=== PATIENT | female | born 1945 | race Caucasian/White ===

== ENCOUNTER 2018-10-01 01:40 | Emergency (ER) | payer MEDICARE, OTHER, SELFPAY ==
[2018-10-01 01:41] VITALS: BP 156/90; PULSE 82; RESP 15; TEMP 36.9; O2SAT 99; BMI 25.3
--- NOTE | 2018-10-01 02:11 | ED.VIS.GEN ---
History of Present Illness Chief Complaint: Complaint Informant: Patient Onset: Days - 2-3 Context: Gradual Onset Timing: Intermittent Quality: No pain Associated Symptoms: No nausea, vomiting, fevers, back pain Narrative: Patient states she started losartan for blood pressure about 5-6 days ago. For the last several days, she feels like she is having less urine, but on further questioning she is attempting to urinate more frequently, putting out less urine when she does, and feels like she is incompletely emptying when she is finished. She denies any pain or burning dysuria. No hematuria. She has no systemic symptoms and her bowel movements are normal. - Past Medical History (1) HTN (hypertension) Status: Chronic Past Medical History - Allergies and Home Meds Allergies/Adverse Reactions: Allergies No Known Allergies Allergy (Verified 10/01/18 01:44) Primary Care Physician: Marco Mckeon DO [Primary Care Provider] - Smoking Status: Never smoker Review of Systems General: Denies: Chills, Fever, Sweats Cardiovascular: Denies: Chest pain, Palpitations Respiratory: Denies: Dyspnea, Cough, Dyspnea on exertion Gastrointestinal: Denies: Abdominal pain, Nausea, Vomiting, Diarrhea, Melena, Hematochezia Genitourinary: Reports: Frequency - and incomplete bladder emptying feeling. see hpi.. Denies: Dysuria, Hematuria Musculoskeletal: Denies: Back pain, Extremity Pain Skin: Denies: Rash Neurological: Denies: Headache, Weakness, Numbness Physical Exam Vital Signs/Narrative: Vital Signs Temp Pulse Resp BP Pulse Ox 10/01/18 01:41 98.5 F 82 15 156/90 H 99 Inital Vital Signs reviewed: Yes General: Well nourished, Well developed Head: Normocephalic, Atraumatic Eyes: Perrl, EOMI Neck: Supple, - - FROM Cardiovascular: Regular rate, Regular rhythm, No murmurs Respiratory: No distress, CTA bilaterally, Chest nontender Abdomen: Soft, Nontender, Nondistended, Normal bowel sounds Back: Nontender, Normal Inspection. Negative for: CVA tenderness Extremities: Nontender, No edema Skin: Normal color, No rash Neurological: Alert, Oriented x3, Cranial nerves II-XII grossly intact, Normal Strength, Normal Sensation Psychological: Normal affect Diagnostic/Tx/Re-eval Laboratory Tests 10/01/18 10/01/18 10/01/18 Range/Units 02:55 02:35 02:35 WBC 8.5 (4.4-11.0) K/mm3 RBC 4.95 (4.2-5.4) M/mm3 Hgb 14.7 (12.0-15.0) g/dl Hct 45.0 (37-47) % MCV 90.9 (81-99) fL MCH 29.7 (27.0-32.0) pg MCHC 32.7 (32-36) g/gl RDW 13.5 (11.6-14.6) % RDW Differential 44.5 H (35.1-43.9) fl Plt Count 272 (150-450) K/mm3 MPV 10.1 (6.2-12.0) fl Immature Gran % (Auto) 0.200 (0.0-0.9) % Neut % (Auto) 64.7 (47-70) % Lymph % (Auto) 26.8 (19-41) % [place] % (Auto) 7.0 (0-10) % Eos % (Auto) 0.8 (0-5) % Baso % (Auto) 0.5 (0-1) % Absolute Neuts (auto) 5.5 (2.0-7.7) X10^3/uL Absolute Lymphs (auto) 2.27 (0.83-4.51) X10^3/ul Total Counted Not Reportable Sodium 142 (136-145) mmol/L Potassium 3.6 (3.5-5.1) mmol/L Chloride 107 (98-107) mmol/L Carbon Dioxide 27.0 (21.0-32.0) mmol/L Anion Gap 8 (5-15) BUN 29 H (7-18) mg/dL Creatinine 0.80 (0.55-1.02) mg/dL Estim Creat Clear Calc 54.13 ml/min Est GFR (MDRD) Af Amer 91 (>60) mL/min Est GFR (MDRD) Non-Af 76 (>60) mL/min BUN/Creatinine Ratio 36.4 H (10-20) RATIO Glucose 114 H (74-106) mg/dL Calcium 9.2 (8.5-10.1) mg/dL Urine Color Yellow (Yellow) Urine Clarity Sl. Cloudy (Clear) Urine pH 7.0 (5.0 - 8.0) Ur Specific [place] 1.010 (1.002-1.030) Urine Protein Negative (Negative) mg/dl Urine Glucose (UA) Normal (Normal) mg/dl Urine Ketones 5 H (Negative) mg/dl Urine Occult Blood 10 H (Negative) /ul Urine Nitrite Negative (Negative) Urine Bilirubin Negative (Negative) mg/dL Urine Urobilinogen Normal (Normal) mg/dl Ur Leukocyte Esterase 25 H (Negative) /ul Urine RBC 0-5 SEEN (0-5) /hpf Urine WBC 0-5 SEEN (0-5) /hpf Ur Squamous Epith Cells 0-5 SEEN (5-10) /hpf Urine Bacteria 0 SEEN (None Seen) /hpf Urine Mucus 0 SEEN (<or=2+) /hpf - Medical Decision Making Urine shows no infection, her renal function is good along with the exception of prerenal azotemia. The patient states that she is drinking plenty of water. After urinating, her postvoid residual is only 70, inconsistent with urinary retention. Unknown if the losartan is causing her prerenal azotemia or not. At this time, I reassured her and recommend close outpatient follow-up after the week and with her PCP. She is comfortable with that plan. ED Disposition - Plan for ED Patient: Disposition: Home or Assisted Living Chief Complaint: Complaint Diagnosis: Prerenal azotemia, Urinary frequency Instructions: ED HTN Established Referrals: Marco Mckeon DO [Primary Care Provider] - 2 Days
[2018-10-01 02:48] LABS: Absolute Lymphocyte Count 2.27 X10^3/ul (0.83-4.51); Absolute Neutrophil Count 5.5 X10^3/uL (2.0-7.7); Basophil# 0.04 X10^3/uL; Basophil% 0.5 % (0-1); Eosinophil# 0.07 X10^3/uL; Eosinophils% 0.8 % (0-5); Hemoglobin 14.7 g/dl (12.0-15.0); Lymphocyte # 2.27 X10^3/ul (4.0); Lymphocyte % 26.8 % (19-41); Mean Corp Hgb Conc 32.7 g/gl (32-36); Mean Corpuscular Hgb 29.7 pg (27.0-32.0); Mean Corpuscular Volume 90.9 fL (81-99); Mean Platelet Vol. 10.1 fl (6.2-12.0); Monocyte# 0.59 X10^3/uL; Neutrophil # 5.47 X10^3/uL (2.7-7.7); Neutrophil % 64.7 % (47-70); Platelet Count 272 K/mm3 (150-450); RBC Distribution Width CV 13.5 % (11.6-14.6); RBC Distribution Width SD 44.5 fl (35.1-43.9); Red Blood Count 4.95 M/mm3 (4.2-5.4); White Blood Count 8.5 K/mm3 (4.4-11.0)
[2018-10-01 02:50] LABS: POSITIVE COUNT NO; POSITIVE DIFFERENTIAL NO; POSITIVE MORPHOLOGY NO
[2018-10-01 02:57] LABS: Bacteria 0 SEEN /hpf (None Seen); Mucous, Urine 0 SEEN /hpf (<or=2+)
[2018-10-01 03:02] LABS: Color, Urine Yellow (Yellow); Glucose, Dipstick Normal (Normal); Ketone-Dipstick 5 mg/dl (Negative); Leukocyte Esterase-Dipstick 25 /ul (Negative); Nitrite-Dipstick Negative (Negative); Occult Blood-Urine 10 /ul (Negative); Protein-Dipstick Negative (Negative); Urine Bilirubin Dipstick Negative (Negative); Urine Clarity Sl. Cloudy (Clear); Urine Urobilinogen Normal (Normal)
[2018-10-01 03:04] LABS: Anion Gap 8 (5-15); BUN 29 mg/dL (7-18); BUN/Creat Ratio 36.4 RATIO (10-20); Calcium,Total 9.2 mg/dL (8.5-10.1); Chloride 107 mmol/L (98-107); EST Glomerular Filtration Rate 76 mL/min (>60); Est Glom Filt Rate - Afr Amer 91 mL/min (>60); Estimated Creatinine Clearance 54.13 ml/min; Glucose 114 mg/dL (74-106); Potassium 3.6 mmol/L (3.5-5.1); Sodium Level 142 mmol/L (136-145)
[2018-10-01 03:28] LABS: Red Blood Cells-Urine 0-5 SEEN /hpf (0-5); Squamous Epithelial Cells - UA 0-5 SEEN /hpf (5-10); White Blood Cells 0-5 SEEN /hpf (0-5)
[2018-10-01 04:15] VITALS: BP 125/76; PULSE 68; RESP 15; O2SAT 99
--- OUTSIDE RECORDS SUMMARY | 2018-11-24 22:17 | XMS RPT_ITS ---
:1945 Author Organization OHIP Care Team Providers Name Role Phone ULISES GODDARD Attending Unavailable Simons, Marco Primary Care Unavailable SIMONS, MARCO L Referring Unavailable SIMONS, MARCO L Attending Unavailable SIMONS, MARCO L Referring Unavailable SIMONS, MARCO L Referring Unavailable SIMONS, MARCO L Referring Unavailable SIMONS, MARCO L Attending Unavailable SIMONS, MARCO L Referring Unavailable SIMONS, MARCO L Referring Unavailable SIMONS, MARCO L Referring Unavailable GIL, KELLEY E Attending Unavailable SIMONS, MARCO L Referring Unavailable GIL, KELLEY E Referring Unavailable GIL, KELLEY E Referring Unavailable GIL, KELLEY E Referring Unavailable GIL, KELLEY E Referring Unavailable PROBLEMS PROBLEMS DATE TYPE CONDITION / CODE ATTENDING STATUS SOURCE 01/11/2017 Active Type 2 diabetes NA Active [facility] mellitus without [place] complications / Repository E11.9(ICD-10) 07/17/2018 Active Nonrheumatic aortic NA Active [facility] (valve) stenosis / [place] I35.0(ICD-10) Repository 02/07/2018 Active Encounter for NA Active [facility] screening mammogram [place] for malignant Repository neoplasm of breast / Z12.31(ICD-10) 01/05/2018 Active Other alf NA Active [facility] (current) drug [place] therapy / Repository Z79.899(ICD-10) PROCEDURES PROCEDURES No Procedure Records FoundRESULTS RESULTS CNPN Observed: 10/06/2018 Status: COMPLETED Source: BOUSE 12:00 AM [facility] REPOSITORY Telephone (CAWSTR) MARIOLARADHA Corona ([id number]) 1945 F Date Time Provider Department 10/06/18 KELLEY CORDERO During your visit today, we recorded the following information about you: Robles Feliz PSR 10/06/2018 8:17 AM Signed Patient called and informed us that she seems to be having issues with her Losartin RX. She says she has been having problems with her kidneys since beginning the medication. Please advise patient Thanks Robles Feliz PSR Jude Doss RN 10/06/2018 9:19 AM Signed Called pt, she states she has no complaints at this time. Pt is concerned that her kidney are not working so she went to emergency dept and was evaluated. Records printed AND placed in box to review Jude Cordero MD 10/06/2018 10:20 AM Signed Records reviewed. Kidney function is normal and unchanged. Urinalysis was reportedly normal. Try decreasing losartan to 25 milligrams daily and report progress early next week, along with mention of any urinary symptoms and report of blood pressures. Measure urine output. Try to drink at least 2 quarts a day total. MD Rosa Moran MA 10/06/2018 10:52 AM Signed Left message to call office. 10/06/2018 10:52 AM Rosa Doss RN 10/06/2018 1:18 PM Signed Patient notified of results and provider's instructions. Patient verbalizes understanding. Jude Doss RN 10/06/2018 1:18 PM Signed Addended by: JUDE DOSS RN on: 10/06/2018 01:18 PM Modules accepted: Orders Kelley Cordero MD 10/06/2018 3:29 PM Signed Addended by: KELLEY CORDERO MD on: 10/06/2018 03:29 PM Modules accepted: Orders Allergies As of Date: 10/06/2018 Noted Allergy Reaction IODINE 03/27/2009 2 - Rash Comments: topical iodine Date Reviewed: 09/08/2018 Reviewed by: Rosa Lee MA - Fully Assessed Reason for Visit: Medication Question [1478] Order(s):losartan (COZAAR) 50 mg tabletTake 0.5 tablets by mouth once daily.Disp: 30 tabletRfl: 3 Prescriptions as of 10/06/2018 Sig: LOSARTAN 50 MG TABLET Take 0.5 tablets by mouth onc* ASPIRIN 81 MG TABLET,DELAYED * Take 1 tablet by mouth once d* BLOOD SUGAR DIAGNOSTIC STRIPS Test blood sugar(s) 1 times d* BLOOD-GLUCOSE METER Dispense 1 kit LANCETS Test blood sugar(s) 2 times d* * CALCIUM 500 WITH D 500 MG (1,* Take one(1) tablet two(2) derick* Problem List As Of Date 10/06/2018 Noted Resolved FAMILY HX DIABETES MELLITUS [Z83.3] INVALID FOR* SCREENING MAL NEOP-COLON [Z12.11] INVALID FOR* UNSP ABNORMAL MAMMOGRAM [R92.8] INVALID FOR* MALIG NEOPLASM BREAST UP-OUTER [C50.419] INVALID FOR* More... Pain in joint, ankle and foot [M25.579] INVALID FOR*01/11/2017 Impaired fasting glucose [R73.01] INVALID FOR*07/12/2016 Benign Neoplasm of Skin of Trunk, except Scrotu*INVALID FOR* Personal history of breast cancer [Z85.3] INVALID FOR* Controlled type 2 diabetes mellitus without com*INVALID FOR* Low HDL (under 40) [E78.6] INVALID FOR* Elevated LFTs [R94.5] INVALID FOR* Dyslipidemia [E78.5] INVALID FOR* Vitamin D deficiency [E55.9] INVALID FOR* Osteopenia [M85.80] INVALID FOR* Moderate aortic regurgitation [I35.1] INVALID FOR* Left atrial dilatation [I51.7] INVALID FOR* Cardiomyopathy, nonischemic (HCC) [I42.8] INVALID FOR* Prescriptions ordered this encounter Disp Refills Start End LOSARTAN 50 MG TABLET 30 t* 3 10/06/2018 Class: Med Update Route: ORAL Sig: Take 0.5 tablets by mouth once daily. Medications Discontinued During This Encounter losartan (COZAAR) 50 mg tablet 30 t* 3 09/25/2018 10/06/2018 Route: ORAL Sig: Take 1 tablet by mouth once daily. Disc: Reason for discontinue is not on file. Encounter Status:Closed by ROBLES HARRIS on 10/06/18 EMERGENCY DEPARTMENT Observed: 10/01/2018 Status: F Source: [place] SUMMARY 3:55 AM [facility] REPOSITORY [facility] Medical Records Department [address] [place] [address] Emergency Department Summary 10/01/18 0211 MR#: [id number] Acct: [id number] Name: RADHA GARNETT Rep #: [id number] : 1945 72 From: Ulises Goddard MD PCP: Marco Bower DO Status: REG ER History of Present Illness Chief Complaint: Complaint Informant: Patient Onset: Days - 2-3 Context: Gradual Onset Timing: Intermittent Quality: No pain Associated Symptoms: No nausea, vomiting, fevers, back pain Narrative: Patient states she started losartan for blood pressure about 5-6 days ago. For the last several days, she feels like she is having less urine, but on further questioning she is attempting to urinate more frequently, putting out less urine when she does, and feels like she is incompletely emptying when she is finished. She denies any pain or burning dysuria. No hematuria. She has no systemic symptoms and her bowel movements are normal. - Past Medical History (1) HTN (hypertension) Status: Chronic Past Medical History - Allergies and Home Meds Allergies/Adverse Reactions: Allergies No Known Allergies Allergy (Verified 10/01/18 01:44) Primary Care Physician: Marco Simons DO [Primary Care Provider] - Smoking Status: Never smoker Review of Systems General: Denies: Chills, Fever, Sweats Cardiovascular: Denies: Chest pain, Palpitations Respiratory: Denies: Dyspnea, Cough, Dyspnea on exertion Gastrointestinal: Denies: Abdominal pain, Nausea, Vomiting, Diarrhea, Melena, Hematochezia Genitourinary: Reports: Frequency - and incomplete bladder emptying feeling. see hpi.. Denies: Dysuria, Hematuria Musculoskeletal: Denies: Back pain, Extremity Pain Skin: Denies: Rash Neurological: Denies: Headache, Weakness, Numbness Physical Exam Vital Signs/Narrative: Vital Signs 10/01/18 01:41 98.5 F 82 15 156/90 H 99 Inital Vital Signs reviewed: Yes General: Well nourished, Well developed Head: Normocephalic, Atraumatic Eyes: Perrl, EOMI Neck: Supple, - - FROM Cardiovascular: Regular rate, Regular rhythm, No murmurs Respiratory: No distress, CTA bilaterally, Chest nontender Abdomen: Soft, Nontender, Nondistended, Normal bowel sounds Back: Nontender, Normal Inspection. Negative for: CVA tenderness Extremities: Nontender, No edema Skin: Normal color, No rash Neurological: Alert, Oriented x3, Cranial nerves II-XII grossly intact, Normal Strength, Normal Sensation Psychological: Normal affect Diagnostic/Tx/Re-eval Laboratory Tests - Medical Decision Making Urine shows no infection, her renal function is good along with the exception of prerenal azotemia. The patient states that she is drinking plenty of water. After urinating, her postvoid residual is only 70, inconsistent with urinary retention. Unknown if the losartan is causing her prerenal azotemia or not. At this time, I reassured her and recommend close outpatient follow-up after the week and with her PCP. She is comfortable with that plan. ED Disposition - Plan for ED Patient: Disposition: Home or Assisted Living Chief Complaint: Complaint Diagnosis: Prerenal azotemia, Urinary frequency Instructions: ED HTN Established Referrals: Marco Simons DO [Primary Care Provider] - 2 Days What to do if you have Problems For any increased pain, shortness of breath, bleeding, nausea or vomiting, chest pain, or any unexpected problems, contact your Primary Care Provider. Call [facility] ([phone]) or report to the closest Emergency Room. Call 911 if necessary. 10/01/18 0355 <Electronically signed by Ulises Goddard MD> Date Ulises Goddard MD Cosigner Signature (If Indicated): Date CC: Marco Bower DO URINALYSIS, COMPLETE Collected: 10/01/2018 Status: F Source: IRIS 2:55 AM [facility] REPOSITORY Order Comment: Order Date: 10/01/18 How was Urine Obtained? 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 Cloudy LAB L400.3200 Normal mg/dl Normal GLUCOSE, UR Normal LAB L400.3300 Negative mg/dL Normal BILIRUBIN URINE Negative LAB L400.3400 Negative mg/dl High 5 KETONE UR LAB L400.3465 1.002-1.030 Normal SP.GR. DIPSTX 1.010 LAB L400.3550 5.0 - 8.0 pH UR Normal 7.0 LAB L400.3600 Negative mg/dl PROT Normal DIPSTX Negative LAB L400.3700 Normal mg/dl Normal UROBILI Normal LAB L400.3750 Negative Normal NITRITE UR Negative LAB L400.3780 Negative /ul High 10 OCCULT BLOOD-UR LAB L400.3800 Negative /ul High LEUK 25 ESTERASE LAB L400.4050 0-5 /hpf WBC Normal 0-5 SEEN LAB L400.4100 0-5 /hpf Normal RBC-UA 0-5 SEEN LAB L400.4150 5-10 /hpf SQUAM Normal EPI 0-5 SEEN LAB L400.4300 None Seen /hpf 0 Normal BACTERIA SEEN LAB L400.4350 <or=2+ /hpf 0 Normal MUCUS, URINE SEEN Performed By: #### L400.0001 #### [facility] [address] [place], [place], [address] CBC W/DIFF, AUTOMATED Collected: 10/01/2018 Status: F Source: [place] 2:35 AM [facility] REPOSITORY TYPE CODE TESTS RESULT OUT OF RANGE REFERENCE UNITS LAB L100.1000 4.4-11.0 K/mm3 Normal WBC 8.5 LAB L100.1200 4.2-5.4 M/mm3 Normal RBC 4.95 LAB L100.1300 12.0-15.0 g/dl Normal HGB 14.7 LAB L100.1400 37-47 % Normal HCT 45.0 LAB L100.1500 81-99 fL Normal MCV 90.9 LAB L100.1600 27.0-32.0 pg Normal MCH 29.7 LAB L100.1700 32-36 g/gl Normal MCHC 32.7 LAB L100.1810 11.6-14.6 % Normal RDW CV 13.5 LAB L100.1820 35.1-43.9 fl High RDW SD 44.5 LAB L100.1900 150-450 K/mm3 Normal PLT 272 LAB L100.2000 6.2-12.0 fl Normal MPV 10.1 LAB L100.2100 47-70 % Normal NEUT% 64.7 LAB L100.2200 19-41 % Normal LY% 26.8 LAB L100.2300 0-10 % Normal MONO% 7.0 LAB L100.2400 0-5 % Normal EO% 0.8 LAB L100.2500 0-1 % Normal BASO% 0.5 LAB L100.2550 0.0-0.9 % Normal IM GRAN % 0.200 Result Comment: IG% - Immature Granulocytes (promyelocytes, myelocytes and metamyelocytes) > 1% indicates that a LEFT SHIFT is Present. LAB L100.2620 2.0-7.7 X10 3/uL Normal Absolute Neut 5.5 LAB L100.2720 0.83-4.51 X10 3/ul Normal Absolute Lymph 2.27 Performed By: #### L100.0100 #### [facility] [address] [place], [address] BASIC METABOLIC Collected: 10/01/2018 Status: F Source: [facility] PROFILE ([facility]) 2:35 AM [facility] REPOSITORY TYPE CODE TESTS RESULT OUT OF RANGE REFERENCE UNITS LAB L501.0100 74-106 mg/dL High GLU 114 Result Comment: Fasting Glucose result from 100 to 125 mg/dL suggests IMPAIRED HOMEOSTASIS per A.D.A. criteria. Please note revised GLUCOSE reference range effective 2017. LAB L501.1000 7-18 mg/dL High BUN 29 LAB L501.1100 0.55-1.02 mg/dL Normal CREAT,SERUM 0.80 Result Comment: The validity of the calculated GFR AND GFRAA in patients over 70 years has not been determined. Clinical correlation is essential. LAB L501.1110 >60 mL/min Normal EST GFR 76 Result Comment: Non- GFR Calc LAB L501.1115 >60 mL/min Normal EST GFR - AA 91 Result Comment: GFR Calc LAB L501.1255 ml/min Normal Estimated CRCL 54.13 LAB L501.1300 10-20 RATIO High BUN/CRE 36.4 LAB L501.2200 8.5-10 mg/dL Normal .1 CA 9.2 LAB L501.5300 136-14 mmol/L Normal 5 NA 142 LAB L501.5600 3.5-5. mmol/L Normal 1 K 3.6 LAB L501.5900 98-107 mmol/L Normal CL 107 LAB L501.6100 21.0-3 mmol/L Normal 2.0 CO2 27.0 LAB L501.6200 5-15 Normal GAP 8 Performed By: #### L500.2500 #### [facility] [address] [place], [address] PROGRESS Observed: 09/29/2018 Status: COMPLETED Source: BOUSE 3:59 PM [facility] REPOSITORY HNO ID: [id number] Author: Kelley Cordero Service: (none) Author Type: Physician Type: Progress Notes Filed: 09/29/2018 4:00 PM Note Text: Blood pressure monitor does not appear to be consistent. Please change the batteries. If she continues to get widely varying readings, this monitor should be replaced. Once she has it working correctly, check vital signs daily and contact us in a week. Kelley Cordero MD CNNURSE Observed: 09/29/2018 Status: COMPLETED Source: BOUSE 3:15 PM [facility] REPOSITORY Nurse Visit (CAWSTR) RADHA GARNETT ([id number]) 1945 F Date Time Provider Department 09/29/18 3:15 PM NURSE CARD ADMIN [facility] WSTR CAWSTR During your visit today, we recorded the following information about you: Pulse Blood pressure 73/minute 124/70 Rosa Lee MA 09/29/2018 3:21 PM Signed Patient brought home BP monitor in to verify it was ready correctly. Home: 163/80 pulse 77 129/70 pulse 72 Office: 142/78 pulse 83 124/70 pulse 73 Rosa Cordero MD 09/29/2018 4:00 PM Signed Blood pressure monitor does not appear to be consistent. Please change the batteries. If she continues to get widely varying readings, this monitor should be replaced. Once she has it working correctly, check vital signs daily and contact us in a week. Kelley Cordero MD Referring Provider: SELF [200] Allergies As of Date: 09/29/2018 Noted Allergy Reaction IODINE 03/27/2009 2 - Rash Comments: topical iodine Date Reviewed: 09/08/2018 Reviewed by: Rosa Lee MA - Fully Assessed Reason for Visit: Allied Health Visit [5] Primary Visit Diagnosis:Cardiomyopathy, nonischemic (HCC) [I42.8] Prescriptions as of 09/29/2018 Sig: LOSARTAN 50 MG TABLET Take 1 tablet by mouth once d* ASPIRIN 81 MG TABLET,DELAYED * Take 1 tablet by mouth once d* BLOOD SUGAR DIAGNOSTIC STRIPS Test blood sugar(s) 1 times d* BLOOD-GLUCOSE METER Dispense 1 kit LANCETS Test blood sugar(s) 2 times d* * CALCIUM 500 WITH D 500 MG (1,* Take one(1) tablet two(2) derick* Problem List As Of Date 09/29/2018 Noted Resolved FAMILY HX DIABETES MELLITUS [Z83.3] INVALID FOR* SCREENING MAL NEOP-COLON [Z12.11] INVALID FOR* UNSP ABNORMAL MAMMOGRAM [R92.8] INVALID FOR* MALIG NEOPLASM BREAST UP-OUTER [C50.419] INVALID FOR* More... Pain in joint, ankle and foot [M25.579] INVALID FOR*01/11/2017 Impaired fasting glucose [R73.01] INVALID FOR*07/12/2016 Benign Neoplasm of Skin of Trunk, except Scrotu*INVALID FOR* Personal history of breast cancer [Z85.3] INVALID FOR* Controlled type 2 diabetes mellitus without com*INVALID FOR* Low HDL (under 40) [E78.6] INVALID FOR* Elevated LFTs [R94.5] INVALID FOR* Dyslipidemia [E78.5] INVALID FOR* Vitamin D deficiency [E55.9] INVALID FOR* Osteopenia [M85.80] INVALID FOR* Moderate aortic regurgitation [I35.1] INVALID FOR* Left atrial dilatation [I51.7] INVALID FOR* Cardiomyopathy, nonischemic (HCC) [I42.8] INVALID FOR* Visit Notes: >> Rosa Lee MA Fri Sep 29, 2018 3:18 PM Status: Signed Patient brought home BP monitor in to verify it was ready correctly. Home: 163/80 pulse 77 129/70 pulse 72 Office: 142/78 pulse 83 124/70 pulse 73 Rosa Lee GURPREET Follow-up and Disposition History Recorded Encounter Status:Closed by OTIS ROSA VÁZQUEZ on 09/29/18 NM CARDIAC PERF Observed: 09/20/2018 Status: F Source: BOUSE STRESS/EXERCISE 2:15 PM [facility] REPOSITORY * * *Final Report* * * DATE OF EXAM: Sep 20 2018 2:15PM WON 0004 - NM CARDIAC PERF STRESS/EXERCISE / PROCEDURE REASON: Cardiomyopathy, nonischemic (HCC) [I42.8];Nonrheumatic aortic valve stenosis [I * * * * Physician Interpretation * * * * PATIENT: Name: RADHA GARNETT Age: 72 years Gender: F CONCLUSIONS: 1. There is no scintigraphic evidence for inducible ischemia. 2. No evidence of scarred myocardium. 3. Average functional capacity for age and gender. 4. Left ventricle is normal in size. The left ventricle systolic function is mildly decreased. 5. This is an intermediate risk scan. Gated Stress FBP LVEF % 46 Prior Study Comparison No prior nuclear cardiology exam available for comparison. Nuclear Med Report:1-Day [id number] Exercise Stress Gated SPECT: Myocardial perfusion imaging was performed at rest 30 to 60 minutes following the IV injection of Tc-99m tetrofosmin. One minute prior to peak exercise, the patient was injected IV with Tc-99m tetrofosmin. Gated post stress tomographic imaging was performed 10 to 20 minutes later. See administered doses below. [facility] Date of service: 09/20/2018 8:02:07 AM Ordering Physician: Requesting Physician: KELLEY CORDERO Indication: Assessment for suspected CAD. Interpreting physician: Anuradha Curiel MD Patient History: History of cardiomyopathy, valvular heart disease and diabetes mellitus. Medications currently taking are ASA. Height: 160.02 cm BSA: 1.70 m? Weight: 64.86 kg BMI: 25.3 kg/m? Imaging Protocol Limitation Reason G.I. uptake, Patient motion and Breast attenuation. Exam Type: Rest Stress Radiopharm: Tc-99m Tetrofosmin Tc-99m Tetrofosmin Dosage(mCi): 13.3 36 Stress Agent: Treadmill Resting Heart Rate: 69 bpm Resting Blood Press: 156/78 mmHg Image Quality The overall study imaging quality was deemed to be fair. The following technical issues were noted: G.I. uptake, Patient motion and Breast attenuation. FINDINGS: Left Ventricle Wall Motion: mild global hypokinesis Stress IR:3D - Rest IR:3D - Gated Stress FBP - Reversibility - Stress IR:3D Stress IR:3D Gated Stress FBP LVEF: 46 % ED Volume: 95 ml ES Volume: 51 ml TID: 0.82 Perfusion Findings Stress IR:3D - Summed Score=0 All scored segments reflect normal perfusion. Rest IR:3D - Summed Score=0 All scored segments reflect normal perfusion. Stress IR:3D Rest IR:3D Summed Score=0 Summed Score=0 LEFT VENTRICLE The left ventricle is normal in size. Left ventricular systolic function is mildly decreased. Stress Test Findings: There is no scintigraphic evidence for inducible ischemia. There is no evidence of scarring. The stress test was terminated due to the following: Fatigue. Peak HR 166 bpm. (111 % MPHR) (7.8 METS) Peak BP 176 mmHg/98 mmHg Patient experienced no symptoms during stress. Stress ECG normal ST segment response. Stress complications: none. Final Cruise Director: MAGDALENA Transcribe Date/Time: Sep 20 2018 8:02A Dictated by : ANURADHA CURIEL MD This examination was interpreted and the report reviewed and electronically signed by: ANURADHA CURIEL MD on Sep 20 2018 3:05PM EST [id number] PROGRESS Observed: 09/20/2018 Status: COMPLETED Source: BOUSE 2:09 PM [facility] REPOSITORY HNO ID: [id number] Author: Char Trent Service: (none) Author Type: (none) Type: Progress Notes Filed: 09/20/2018 2:21 PM Note Text: RADIOLOGY SERVICE PROGRESS NOTE SERVICE DATE: 09/20/2018 SERVICE TIME: 2:09 PM PATIENT IDENTITY VERIFICATION COMPLETED USING TWO (2) METHODS: Patient confirmed name and Date of verbally. PATIENT GENDER DATA: .female : No ALLERGIES: Reviewed and unchanged MEDICATIONS REVIEWED: Yes PATIENT RELEVANT IMPLANT DATA REVIEWED: Not Applicable CREATININE: Creatinine Date Value Ref Range Status 01/05/2018 0.88 0.58 - 0.96 mg/dL Final 07/08/2017 0.81 0.58 - 0.96 mg/dL Final 10/06/2016 0.89 0.58 - 0.96 mg/dL Final eGFR-All Other Races Date Value Ref Range Status 01/05/2018 >60 . Final Comment: eGFR (Estimated GFR) Units of measure: mL/min/1.73 meters squared eGFR is derived from the reexpressed MDRD Study equation using the following parameters: serum creatinine, age, gender and race. The creatinine assay has been calibrated to be traceable to IDMS. An eGFR <60 mL/min/1.73m2 for >3 months is consistent with chronic kidney disease. Refer to KDOQI guidelines for clinical interpretation. In patients with unstable renal function, e.g. those with acute kidney injury, the eGFR may not accurately reflect actual GFR. eGFR- Date Value Ref Range Status 01/05/2018 >60 Final P.O.C.T. RESULTS: N/A September 20, [address] PERFORMED: No IV SITE: Ambulatory: A peripheral IV was started in the Right forearm with a Angio cath: 24 gauge. POST EXAM PIV STATUS: Discontinued PROCEDURE TYPE: [place] Stress: 13.3mCi [id number] was administered IV for Rest Imaging at 12:18 by [employer] . 36 mCi [id number] was administered IV for Stress Imaging at 13:50 by [employer]. ADMINISTRATION TIME: PATIENT DISCHARGED TO: Ambulatory patient, left [place] department area. A Diagnostic radioactive procedure has taken place, with no further precautions necessary other than routine body substance precautions. More information regarding radiation safety can be found using this link: [email or web address] SIGNATURE: Char Trent PATIENT NAME: Radha Garnett DATE: September 20, 2018 TIME: 2:09 PM PAGER/CONTACT #: PROGRESS Observed: 09/20/2018 Status: COMPLETED Source: BOUSE 2:05 PM [facility] REPOSITORY HNO ID: [id number] Author: Basilio Barnes (Rcep) Service: (none) Author Type: Coach Operator Type: Progress Notes Filed: 09/20/2018 2:06 PM Note Text: Preliminary report complete; results under cardiac tab. MICHELL Wolfe CNOV Observed: 09/20/2018 Status: COMPLETED Source: BOUSE 1:30 PM [facility] REPOSITORY Office Visit (CAWSTR) RADHA GARNETT ([id number]) 1945 F Date Time Provider Department 09/20/18 1:30 PM CHRIS BARNES) CAWSTR During your visit today, we recorded the following information about you: MICHELL Wolfe 09/20/2018 2:06 PM Signed Preliminary report complete; results under cardiac tab. MICHELL Wolfe Referring Provider: KELLEY CORDERO [[id number]] Allergies As of Date: 09/20/2018 Noted Allergy Reaction IODINE 03/27/2009 2 - Rash Comments: topical iodine Date Reviewed: 09/08/2018 Reviewed by: Rosa Lee MA - Fully Assessed Primary Visit Diagnosis:POWELL (dyspnea on exertion) [R06.09] Other Visit Diagnosis:Cardiomyopathy, nonischemic (HCC) [I42.8] Prescriptions as of 09/20/2018 Sig: ASPIRIN 81 MG TABLET,DELAYED * Take 1 tablet by mouth once d* BLOOD SUGAR DIAGNOSTIC STRIPS Test blood sugar(s) 1 times d* BLOOD-GLUCOSE METER Dispense 1 kit LANCETS Test blood sugar(s) 2 times d* * CALCIUM 500 WITH D 500 MG (1,* Take one(1) tablet two(2) derick* Problem List As Of Date 09/20/2018 Noted Resolved FAMILY HX DIABETES MELLITUS [Z83.3] INVALID FOR* SCREENING MAL NEOP-COLON [Z12.11] INVALID FOR* UNSP ABNORMAL MAMMOGRAM [R92.8] INVALID FOR* MALIG NEOPLASM BREAST UP-OUTER [C50.419] INVALID FOR* More... Pain in joint, ankle and foot [M25.579] INVALID FOR*01/11/2017 Impaired fasting glucose [R73.01] INVALID FOR*07/12/2016 Benign Neoplasm of Skin of Trunk, except Scrotu*INVALID FOR* Personal history of breast cancer [Z85.3] INVALID FOR* Controlled type 2 diabetes mellitus without com*INVALID FOR* Low HDL (under 40) [E78.6] INVALID FOR* Elevated LFTs [R94.5] INVALID FOR* Dyslipidemia [E78.5] INVALID FOR* Vitamin D deficiency [E55.9] INVALID FOR* Osteopenia [M85.80] INVALID FOR* Moderate aortic regurgitation [I35.1] INVALID FOR* Left atrial dilatation [I51.7] INVALID FOR* Cardiomyopathy, nonischemic (HCC) [I42.8] INVALID FOR* Encounter Status:Closed by Basilio GUZMAN on 09/20/18 PROGRESS Observed: 09/08/2018 Status: COMPLETED Source: BOUSE 5:45 PM [facility] REPOSITORY [facility] ID: [id number] Author: Kelley Cordero Service: (none) Author Type: Physician Type: Progress Notes Filed: 09/08/2018 5:51 PM Note Text: PERTINENT CARDIAC HISTORY Aortic insufficiency - mild DM Cardiomyopathy - mild, nonischemic? IVCD ADHERENCE TO GUIDELINES WILLY-I or ARB for HF with prior LVEF<40 (NQF 0081) - N/A ASA or Plavix for ASHD (NQF 0067) - N/A Beta sachi for ASHD with prior AZ or prior LVEF<40 (NQF 0070) - N/A Beta sachi for HF with prior LVEF<40 (NQF 0083) - N/A WILLY-I or ARB for ASHD with DM or prior LVEF<40 (NQF 0066) - N/A Statin therapy for ASHD or FHL or DM - N/A BMI documented and plan if >25 (NQF 0421) - lifestyle recommendation form Tobacco use screening and referral (NQF 0028) - lifestyle recommendation form Recommendation for whole food, plant based diet - lifestyle recommendation form CLINICAL IMPRESSION/PLAN: Radha Garnett has mild cardiomyopathy and moderate aortic insufficiency. Ischemic heart disease should be considered, although her LV dysfunction is more global. I recommend that she have a treadmill nuclear stress test for further characterization of her LV function and to evaluate for ischemia. Her aortic insufficiency is only moderate and does not require any specific therapy at this time, although I have asked her to check vital signs on a regular basis and contact me. If she requires medication for blood pressure control, WILLY inhibitor or losartan would be ideal choices. I will see her in 6 months or as needed. If she develops chest pain or shortness of breath, she has been advised to contact me. Thank you for asking me to see and make recommendations on Radha Garnett. This report is available to you in the shared medical record. Written and verbal health teaching given to patient, patient verbalizes understanding and agrees with treatment plan. DIAGNOSIS FOR VISIT: Aortic insufficiency HISTORY OF PRESENT ILLNESS Radha Garnett is a 72-year-old woman who is seen in consultation at the request of Dr. Simons, for recommendations regarding aortic valve disease. She was recently noted to have a more significant cardiac murmur. She was told that she had a heart murmur years ago. Echocardiogram at that time showed no significant valvular lesion. She has had stable exercise tolerance. She denies chest pain. She's had no orthopnea, edema, syncope, palpitations, TIAs, amaurosis or claudication. She has been treated for breast cancer. Echocardiogram done prior to chemotherapy showed ejection fraction at lower limits of normal. Risk factors for ischemic heart disease include diabetes. ALLERGIES: ALLERGIES Allergen Reactions - Iodine Rash topical iodine CURRENT OUTPATIENT MEDICATIONS: aspirin, enteric coated (ASPIRIN, ENTERIC COATED) 81 mg EC tablet Take 1 tablet by mouth once daily. blood sugar diagnostic (BLOOD GLUCOSE TEST) test strip Test blood sugar(s) 1 times daily. Dx: Type 2 DM -Controlled, Insulin: No Blood-Glucose Meter [facility] [place] Dispense 1 kit Lancets lancets Test blood sugar(s) 2 times daily. Dx: Type 2 DM - Uncontrolled E11.65 Insulin: No calcium carbonate/vitamin d3(CALCIUM 500 WITH D 500 MG (1,250 MG)-400 UNIT TAB) Take one(1) tablet two(2) times daily. PAST MEDICAL HISTORY Diagnosis Date - Breast cancer (HCC) 2008 lt breast - Diabetes mellitus type 2, uncontrolled (HCC) 07/2016 - Esophageal reflux PAST SURGICAL HISTORY Procedure Laterality Date - BX BREAST PERC VACUUM/ROTN Left Breast - Ductal Carcinoma - BX BREAST PERC VACUUM/ROTN 08/13/10 Left - BX/REMV,LYMPH NODE,DEEP AXILL Left Axillary Dissection - COLONOSCOP W/ OR W/O BRSH SPEC 10/04/2009 Normal Colonscopy - MASTECTOMY, PARTIAL 12/16/2008 L Needle Lump Sentinal Node - PAST SURGICAL HISTORY OF Excision moles abdomen x 3 age 23 - TOTAL ABDOM HYSTERECTOMY 1994 Hysterectomy, ZAK-BSO, Fibroids - TUNNEL VAD W SUB Q PORT >=5 Right Subclavian FAMILY HISTORY Problem Relation Age of Onset - Diabetes Mother - Hypertension Mother - Diabetes Father - Hypertension Maternal Grandmother - Diabetes Maternal Grandmother - Heart Maternal Grandfather - None Sister Twin - None Sister - Cancer Paternal Aunt Melanoma Social History Marital status: Spouse name: Antonio Years of education: 12 Number of children: 1 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 SHEENT: No change in vision or auditory acuity. Respiratory: No productive cough. Cardiac: As noted above. GI: No melena. : No dysuria. Musculoskeletal: No myalgias. Neurologic: No strokes. Psychiatric: No depression. Endocrine: No diabetes. Hematologic: No anemia. PHYSICAL EXAMINATION: S/he is alert and in no distress VITAL SIGNS: BP 143/81 Pulse 74 Ht 5' 3.25 (1.61m) Wt 143 lb 8 oz (65.1kg) BMI 25.21 kg/(m2). SHEENT: Skin is warm and dry. Pupils are round and reactive. Retinal vessels are grossly unremarkable. No xanthelasmas appreciated. Pharynx is benign. There is no oral cyanosis. Neck: supple. No adenopathy or thyroid enlargement. Chest: Clear to auscultation. Trachea is midline. Air entry is equal. There is no chest wall tenderness. Cardiac: Regular rhythm. S1 and S2 are normal. PMI is nondisplaced. There is a 2/6 systolic ejection murmur and a soft murmur of aortic insufficiency. No click is heard. Carotids are brisk without bruits. JVP is less than 10 cm. Abdomen: Soft and nontender. There are no pulsatile masses or bruits. No liver enlargement. Bowel sounds are active. : Deferred. Extremities: No edema. Pulses are intact and symmetrical. No clubbing or cyanosis. No femoral bruits. Neurologic: Grossly normal motor and sensory. S/he is alert and oriented x4. Musculoskeletal: No joint deformities. Echocardiogram was recently performed. This showed ejection fraction 45%. This has decreased slightly from her previous study. She has slightly more aortic insufficiency, now mild to moderate. Recent labs were reviewed. renal function is normal. LDL was 75. EKG shows sinus rhythm. There is left axis deviation and mild IVCD. Since prior study, QRS has widened slightly and there is slightly more repolarization abnormality. Electronically Signed: Kelley Cordero MD September 08, 2018 5:45 PM CC: DO YAN Cabrera Observed: 09/08/2018 Status: COMPLETED Source: [place] 12:45 PM [facility] REPOSITORY Office Visit (CAWSTR) RADHA GARNETT ([id number]) 1945 F Date Time Provider Department 09/08/18 12:45 PM KELLEY CORDERO During your visit today, we recorded the following information about you: Pulse Blood pressure Weight Height 74/minute 143/81 65.1 kg 1.607 m Kelley Cordero MD 09/08/2018 1:41 PM Signed LIFESTYLE CHANGE A healthy lifestyle is the most important component of your overall treatment plan. 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 EAT A WHOLE FOOD, PLANT BASED DIET The nutrition your body gets is more important than the medicine you take. What matters most is the overall way you eat. We encourage you to minimize the use of animal products (which include dairy and all meats except fatty fish) and use whole, unprocessed plant foods to provide your protein, vitamins and other nutrients. We have a lot of information to share with you on this topic. This is not a diet. It is a way of life that you will keep with you. EXERCISE REGULARLY It is not important to spend hours in the gym, lifting weights and perspiring heavily. A total of 2-3 hours per week of aerobic (causing you to be moderately short of breath) exercise is sufficient to improve your health. Talk to us before you begin a new exercise program, if you have heart disease or experience shortness of breath or chest pain. REDUCE STRESS Chronic emotional and physical stress leads to disease. Ways of reducing stress include meditation, visualization, prayer, yoga and other forms of relaxation therapy. Consistency is the barboza. Find a technique that works for you and do it every day. CULTIVATE RELATIONSHIPS Loneliness and isolation have a major negative impact on health. Seek out others who can love, care for and nurture you. Avoid hurtful relationships. MAINTAIN IDEAL BODY WEIGHT The best way to do this is to do all the things above. Our bodies naturally find the right weight if we keep moving and feed ourselves the right food. If your BMI is greater than 25, we strongly recommend a referral to a weight management program. Please speak to us or your family physician about available programs. AVOID NICOTINE IN ALL FORMS This includes all tobacco products, whether chewed, smoked, vaped, or rubbed on the skin. Smoking cessation programs, which can make use of tobacco substitutes, medications to suppress cravings and behavior management, are available. Please contact your family physician about programs in your area. Kelley Cordero MD 09/08/2018 5:51 PM Signed PERTINENT CARDIAC HISTORY Aortic insufficiency - mild DM Cardiomyopathy - mild, nonischemic? IVCD ADHERENCE TO GUIDELINES WILLY-I or ARB for HF with prior LVEF<40 (NQF 0081) - N/A ASA or Plavix for ASHD (NQF 0067) - N/A Beta sachi for ASHD with prior [place] or prior LVEF<40 (NQF 0070) - N/A Beta sachi for HF with prior LVEF<40 (NQF 0083) - N/A WILLY-I or ARB for ASHD with DM or prior LVEF<40 (NQF 0066) - N/A Statin therapy for ASHD or FHL or DM - N/A BMI documented and plan if >25 (NQF 0421) - lifestyle recommendation form Tobacco use screening and referral (NQ 0028) - lifestyle recommendation form Recommendation for whole food, plant based diet - lifestyle recommendation form CLINICAL IMPRESSION/PLAN: Radha Garnett has mild cardiomyopathy and moderate aortic insufficiency. Ischemic heart disease should be considered, although her LV dysfunction is more global. I recommend that she have a treadmill nuclear stress test for further characterization of her LV function and to evaluate for ischemia. Her aortic insufficiency is only moderate and does not require any specific therapy at this time, although I have asked her to check vital signs on a regular basis and contact me. If she requires medication for blood pressure control, WILLY inhibitor or losartan would be ideal choices. I will see her in 6 months or as needed. If she develops chest pain or shortness of breath, she has been advised to contact me. Thank you for asking me to see and make recommendations on Radha Garnett. This report is available to you in the shared medical record. Written and verbal health teaching given to patient, patient verbalizes understanding and agrees with treatment plan. DIAGNOSIS FOR VISIT: Aortic insufficiency HISTORY OF PRESENT ILLNESS Radha Garnett is a 72-year-old woman who is seen in consultation at the request of Dr. Simons, for recommendations regarding aortic valve disease. She was recently noted to have a more significant cardiac murmur. She was told that she had a heart murmur years ago. Echocardiogram at that time showed no significant valvular lesion. She has had stable exercise tolerance. She denies chest pain. She's had no orthopnea, edema, syncope, palpitations, TIAs, amaurosis or claudication. She has been treated for breast cancer. Echocardiogram done prior to chemotherapy showed ejection fraction at lower limits of normal. Risk factors for ischemic heart disease include diabetes. ALLERGIES: ALLERGIES Allergen Reactions - Iodine Rash topical iodine CURRENT OUTPATIENT MEDICATIONS: aspirin, enteric coated (ASPIRIN, ENTERIC COATED) 81 mg EC tablet Take 1 tablet by mouth once daily. blood sugar diagnostic (BLOOD GLUCOSE TEST) test strip Test blood sugar(s) 1 times daily. Dx: Type 2 DM -Controlled, Insulin: No Blood-Glucose Meter mis Dispense 1 kit Lancets lancets Test blood sugar(s) 2 times daily. Dx: Type 2 DM - Uncontrolled E11.65 Insulin: No calcium carbonate/vitamin d3(CALCIUM 500 WITH D 500 MG (1,250 MG)-400 UNIT TAB) Take one(1) tablet two(2) times daily. PAST MEDICAL HISTORY Diagnosis Date - Breast cancer (HCC) 2008 lt breast - Diabetes mellitus type 2, uncontrolled ([facility]) 07/2016 - Esophageal reflux PAST SURGICAL HISTORY Procedure Laterality Date - BX BREAST PERC VACUUM/ROTN Left Breast - Ductal Carcinoma - BX BREAST PERC VACUUM/ROTN 08/13/10 Left - BX/REMV,LYMPH NODE,DEEP AXILL Left Axillary Dissection - COLONOSCOP W/ OR W/O BRSH SPEC 10/04/2009 Normal Colonscopy - MASTECTOMY, PARTIAL 12/16/2008 L Needle Lump Sentinal Node - PAST SURGICAL HISTORY OF Excision moles abdomen x 3 age 23 - TOTAL ABDOM HYSTERECTOMY 1994 Hysterectomy, ZAK-BSO, Fibroids - TUNNEL VAD W SUB Q PORT >=5 Right Subclavian FAMILY HISTORY Problem Relation Age of Onset - Diabetes Mother - Hypertension Mother - Diabetes Father - Hypertension Maternal Grandmother - Diabetes Maternal Grandmother - Heart Maternal Grandfather - None Sister Twin - None Sister - Cancer Paternal Aunt Melanoma Social History Marital status: Spouse name: Antonio Years of education: 12 Number of children: 1 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 SHEENT: No change in vision or auditory acuity. Respiratory: No productive cough. Cardiac: As noted above. GI: No melena. : No dysuria. Musculoskeletal: No myalgias. Neurologic: No strokes. Psychiatric: No depression. Endocrine: No diabetes. Hematologic: No anemia. PHYSICAL EXAMINATION: S/he is alert and in no distress VITAL SIGNS: BP 143/81 Pulse 74 Ht 5' 3.25 (1.61m) Wt 143 lb 8 oz (65.1kg) BMI 25.21 kg/(m2). SHEENT: Skin is warm and dry. Pupils are round and reactive. Retinal vessels are grossly unremarkable. No xanthelasmas appreciated. Pharynx is benign. There is no oral cyanosis. Neck: supple. No adenopathy or thyroid enlargement. Chest: Clear to auscultation. Trachea is midline. Air entry is equal. There is no chest wall tenderness. Cardiac: Regular rhythm. S1 and S2 are normal. PMI is nondisplaced. There is a 2/6 systolic ejection murmur and a soft murmur of aortic insufficiency. No click is heard. Carotids are brisk without bruits. JVP is less than 10 cm. Abdomen: Soft and nontender. There are no pulsatile masses or bruits. No liver enlargement. Bowel sounds are active. : Deferred. Extremities: No edema. Pulses are intact and symmetrical. No clubbing or cyanosis. No femoral bruits. Neurologic: Grossly normal motor and sensory. S/he is alert and oriented x4. Musculoskeletal: No joint deformities. Echocardiogram was recently performed. This showed ejection fraction 45%. This has decreased slightly from her previous study. She has slightly more aortic insufficiency, now mild to moderate. Recent labs were reviewed. renal function is normal. LDL was 75. EKG shows sinus rhythm. There is left axis deviation and mild IVCD. Since prior study, QRS has widened slightly and there is slightly more repolarization abnormality. Electronically Signed: Kelley Cordero MD September 08, 2018 5:45 PM CC: Marco Simons DO Referring Provider: MARCO SIMONS [[id number]] Allergies As of Date: 09/08/2018 Noted Allergy Reaction IODINE 03/27/2009 2 - Rash Comments: topical iodine Date Reviewed: 09/08/2018 Reviewed by: Rosa Lee MA - Fully Assessed Reason for Visit: Establish Care [42] Primary Visit Diagnosis:Cardiomyopathy, nonischemic (HCC) [I42.8] Other Visit Diagnoses:Nonrheumatic aortic valve stenosis [I35.0] POWELL (dyspnea on exertion) [R06.09] Order(s):IV DISCONTINUE [[id number]] Order #: [id number]: 1 INSERT IV ([place]) [[id number]] Order #: [id number]: 1 EXERCISE STRESS W/NUC IMAGING [[id number]] Order #: [id number]: 1 NM CARDIAC PERF STRESS/EXERCISE [[id number]] Order #: [id number] Prescriptions as of 09/08/2018 Sig: ASPIRIN 81 MG TABLET,DELAYED * Take 1 tablet by mouth once d* BLOOD SUGAR DIAGNOSTIC STRIPS Test blood sugar(s) 1 times d* BLOOD-GLUCOSE METER Dispense 1 kit LANCETS Test blood sugar(s) 2 times d* * CALCIUM 500 WITH D 500 MG (1,* Take one(1) tablet two(2) derick* Problem List As Of Date 09/08/2018 Noted Resolved FAMILY HX DIABETES MELLITUS [Z83.3] INVALID FOR* SCREENING MAL NEOP-COLON [Z12.11] INVALID FOR* UNSP ABNORMAL MAMMOGRAM [R92.8] INVALID FOR* MALIG NEOPLASM BREAST UP-OUTER [C50.419] INVALID FOR* More... Pain in joint, ankle and foot [M25.579] INVALID FOR*01/11/2017 Impaired fasting glucose [R73.01] INVALID FOR*07/12/2016 Benign Neoplasm of Skin of Trunk, except Scrotu*INVALID FOR* Personal history of breast cancer [Z85.3] INVALID FOR* Controlled type 2 diabetes mellitus without com*INVALID FOR* Low HDL (under 40) [E78.6] INVALID FOR* Elevated LFTs [R94.5] INVALID FOR* Dyslipidemia [E78.5] INVALID FOR* Vitamin D deficiency [E55.9] INVALID FOR* Osteopenia [M85.80] INVALID FOR* Moderate aortic regurgitation [I35.1] INVALID FOR* Left atrial dilatation [I51.7] INVALID FOR* Cardiomyopathy, nonischemic (HCC) [I42.8] INVALID FOR* Other instructions from your clinician: LIFESTYLE CHANGE A healthy lifestyle is the most important component of your overall treatment plan. Please give serious thought to the following areas and commit to making alf changes. EAT A WHOLE FOOD, PLANT BASED DIET The nutrition your body gets is more important than the medicine you take. What matters most is the overall way you eat. We encourage you to minimize the use of animal products (which include dairy and all meats except fatty fish) and use whole, unprocessed plant foods to provide your protein, vitamins and other nutrients. We have a lot of information to share with you on this topic. This is not a diet. It is a way of life that you will keep with you. EXERCISE REGULARLY It is not important to spend hours in the gym, lifting weights and perspiring heavily. A total of 2-3 hours per week of aerobic (causing you to be moderately short of breath) exercise is sufficient to improve your health. Talk to us before you begin a new exercise program, if you have heart disease or experience shortness of breath or chest pain. REDUCE STRESS Chronic emotional and physical stress leads to disease. Ways of reducing stress include meditation, visualization, prayer, yoga and other forms of relaxation therapy. Consistency is the barboza. Find a technique that works for you and do it every day. CULTIVATE RELATIONSHIPS Loneliness and isolation have a major negative impact on health. Seek out others who can love, care for and nurture you. Avoid hurtful relationships. MAINTAIN IDEAL BODY WEIGHT The best way to do this is to do all the things above. Our bodies naturally find the right weight if we keep moving and feed ourselves the right food. If your BMI is greater than 25, we strongly recommend a referral to a weight management program. Please speak to us or your family physician about available programs. AVOID NICOTINE IN ALL FORMS This includes all tobacco products, whether chewed, smoked, vaped, or rubbed on the skin. Smoking cessation programs, which can make use of tobacco substitutes, medications to suppress cravings and behavior management, are available. Please contact your family physician about programs in your area. Follow-up and Disposition History Recorded Encounter Status:Closed by KELLEY CORDERO MD on 09/08/18 PROGRESS Observed: 07/18/2018 Status: COMPLETED Source: [place] 7:17 AM [facility] REPOSITORY O ID: [id number] Author: Marco Simons Service: (none) Author Type: Physician Type: Progress Notes Filed: 07/18/2018 7:22 AM Note Text: Patient presents with: Follow Up: 6 months HPI: Radha Garnett is a 72 year old female who presents to the office today for review of health conditions. Concerns today: Overall feeling well. Working on eating a more well balanced diet and increased proteins. Ms. Garnett has past history of diabetes. Since our last visit she denies excessive thirst or increased frequency of urination, chest pain or dyspnea , new or unusual visual symptoms and low sugar/hypoglycemic reactions. Follows a diabetic diet most of the time. She is diet controlled. She reports checking her glucose on a once a day schedule with sugars in the fasting 90s-110s range. Patient's last HgA1C was Hemoglobin A1C (%) Date Value 07/13/2018 5.0 01/05/2018 4.9 ) Last Ophthalmology exam was within the past 12 months Ms. Garnett reports history of hyperlipidemia. Current therapy includes diet and exercise. Denies side effects of muscle weakness or achiness. Her most recent lipid panels are reviewed. Cholesterol, Total (mg/dL) Date Value 07/13/2018 146 HDL Cholesterol (mg/dL) Date Value 07/13/2018 58 LDL Cholesterol (mg/dL) Date Value 07/13/2018 75 Triglyceride (mg/dL) Date Value 07/13/2018 64 Last 3 Encounter BP Readings: Date: BP: 07/17/2018 130/70 01/13/2018 136/74 07/15/2017 120/70 She watches her diet for sodium, low fat and low cholesterol most of the time. She does not check BP's generally. Radha gets sporadic irregular exercise. PAST MEDICAL HISTORY Diagnosis Date - Breast cancer (HCC) 2008 lt breast - Diabetes mellitus type 2, uncontrolled (HCC) 07/2016 - Esophageal reflux PAST SURGICAL HISTORY Procedure Laterality Date - BX BREAST PERC VACUUM/ROTN Left Breast - Ductal Carcinoma - BX BREAST PERC VACUUM/ROTN 08/13/10 Left - BX/REMV,LYMPH NODE,DEEP AXILL Left Axillary Dissection - COLONOSCOP W/ OR W/O BRSH SPEC 10/04/2009 Normal Colonscopy - MASTECTOMY, PARTIAL 12/16/2008 L Needle Lump Sentinal Node - PAST SURGICAL HISTORY OF Excision moles abdomen x 3 age 23 - TOTAL ABDOM HYSTERECTOMY 1994 Hysterectomy, ZAK-BSO, Fibroids - TUNNEL VAD W SUB Q PORT >=5 Right Subclavian Social History Marital status: Spouse name: Antonio Years of education: 12 Number of children: 1 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 Main Topics Smoking status: Never Smoker Smokeless tobacco: Never Used Alcohol use: No Drug use: No Sexual activity: Yes control/protection: Other Comment: Hysterectomy FAMILY HISTORY Problem Relation Age of Onset - Diabetes Mother - Hypertension Mother - Diabetes Father - Hypertension Maternal Grandmother - Diabetes Maternal Grandmother - Heart Maternal Grandfather - None Sister Twin - None Sister - Cancer Paternal Aunt Melanoma Allergies: ALLERGIES Allergen Reactions - Iodine Rash topical iodine Current Meds: blood sugar diagnostic (BLOOD GLUCOSE TEST) test strip Test blood sugar(s) 1 times daily. Dx: Type 2 DM -Controlled, Insulin: No Blood-Glucose Meter misc Dispense 1 kit Lancets lancets Test blood sugar(s) 2 times daily. Dx: Type 2 DM - Uncontrolled E11.65 Insulin: No calcium carbonate/vitamin d3(CALCIUM 500 WITH D 500 MG (1,250 MG)-400 UNIT TAB) Take one(1) tablet two(2) times daily. aspirin, enteric coated (ASPIRIN, ENTERIC COATED) 81 mg EC tablet Take 1 tablet by mouth once daily. Review of Systems: The remainder of the review of systems is negative. PE: 07/17/18 0935 BP: 130/70 Pulse: 64 Resp: 16 Temp: 36.7 ?C (98.1 ?F) TempSrc: Left Tympanic Weight: 64 kg (141 lb) Gen: AANDO, NAD, non-toxic appearing, Pleasant, cooperative HEENT: NT/AC, PERRLA, wearing glasses, EOMs intact b/l, nares clear and patent b/l, pharynx without erythema, exudate or lesions. Uvula midline. MMM Neck: supple, No cervical LAD, no thyromegaly, no carotid bruits CV: RRR, normal S1 and S2, 2/6 RUSB murmurs, no gallops, no rubs, Pulses 2+ and symmetric in UE and LE b/l Lungs: normal respiratory effort, CTA b/l, no wheezing or rhonchi or rales Abd: soft, NT, ND, +BS, no hepatosplenomegaly MS: FROM all 4 extremities Neuro: CN II-XII intact b/l, strength 5/5 b/l UE and LE, DTRs 2/4 UE and LE, sensation intact. Skin: warm, dry, intact, No rashes or lesions on exposed skin. Foot exam: Monofilament normal on right and left feet. ASSESSMENT/PLAN: 1. Controlled type 2 diabetes mellitus without complication, without long-term current use of insulin (HCC) - ICD9: 250.00, ICD10: E11.9 (primary diagnosis) Controlled. - Blood glucose monitoring on a once a day schedule - Encouraged regular aerobic exercise and weight loss - Daily Asprin therapy recommended - Follow up in 6 month, sooner should any other issues arise. - Discussed diabetic education issues of alf diabetic complications, diet and importance of exercise with patient. - BP goal of <130/80 - LDL goal of <100 - ASPIRIN 81 MG TABLET,DELAYED RELEASE - ECHO - ECG COMPLETE W INTERPRETATION 2. Need for vaccination - ICD9: V05.9, ICD10: Z23 - ADMIN OF INFLUENZA VACCINE - INFLUENZA SEASONAL HIGH DOSE AGE 65+ 3. Aortic stenosis, mild - ICD9: 424.1, ICD10: I35.0 - EKG today in office without acute changes, recheck echo - ECHO - ECG COMPLETE W INTERPRETATION Marco Simons DO To ER if develops chest pain, shortness of breath, or severe worsening of symptoms. Discussed risks, benefits, alternatives, and potential side effects of medications. Patient expressed understanding and agreed with the plan. Marco Simons DO [address] [place] [address] ECG COMPLETE W Observed: 07/17/2018 Status: F Source: BOUSE INTERPRETATION 10:10 AM [facility] REPOSITORY NAME : RADHA GARNETT PID : [id number] : 1945 Gender : Female Race : ORD : [id number] Procedure Date : Jul 17 2018 10:10:47 Edit Date : Jul 21 2018 15:53:06 Diagnosis:NORMAL SINUS RHYTHM LEFT AXIS DEVIATION MINIMAL VOLTAGE CRITERIA FOR LVH, MAY BE NORMAL VARIANT ABNORMAL ECG Confirmed by MIKE SANDHU D.O. ([id number]) on 07/21/2018 3:52:57 PM Ventricular Rate : 61 BPM Atrial Rate : 61 BPM P-R Interval : 138 ms QRS Duration : 110 ms Q-T Interval : 428 ms QTC Calculation(Bezet) : 430 ms P [place] : 0 degrees R [place] : -36 degrees T [place] : 8 degrees Test Reason : Location : 185 : [facility] Overread By : MIKE SANDHU D.O. Edited By : MIKE SANDHU D.O. Referred By : MARCO SIMONS Acquired by : YAN GALLEGOS Observed: 07/17/2018 Status: COMPLETED Source: BOUSE 9:20 AM [facility] REPOSITORY Office Visit (FAMPWS) GARNETTRADHA CASTILLO Chloe ([id number]) 1945 F Date Time Provider Department 07/17/18 9:20 AM MARCO SIMONS [facility] During your visit today, we recorded the following information about you: Temperature Pulse Respiration Blood pressure 98.1 degrees 64/minute 16/minute 130/70 Weight 64 kg Liliana Juarez LPN 07/17/2018 9:41 AM Signed Influenza Vaccine Documentation: ? Patient is identified by name and date of : Yes ? Patient is older than 6 months of age: Yes ? Patient denies a severe allergy to any vaccine component or to a previous dose of influenza vaccine: Yes FOR EGG ALLERGY CONCERNS, REFER TO PROVIDER. ? Denies allergy to gelatin, formaldehyde, thimerosol :Yes ? Patient is afebrile and not moderately or severely ill: Yes ? Does the patient have a history of Guillain ?Muscadine Syndrome (a severe paralytic illness): No ? Denies bone marrow transplant prior 6 months or solid organ transplant prior 3 months: Yes ? Denies a history of fainting after a prior injection or medical procedure? Yes If patient has fainted in the past, the CDC recommends sitting or lying down for 15 minutes after the vaccination. ? VIS sheet provided: Yes ? See Immunization Form in [employer] for details of immunizations administered today. If patient reports dizziness, vision changes or ringing in the ears post vaccination ? please have patient sit or lie down for 15 minutes. Marco Simons DO 07/18/2018 7:22 AM Signed Patient presents with: Follow Up: 6 months HPI: Radha Chloe Garnett is a 72 year old female who presents to the office today for review of health conditions. Concerns today: Overall feeling well. Working on eating a more well balanced diet and increased proteins. Ms. Garnett has past history of diabetes. Since our last visit she denies excessive thirst or increased frequency of urination, chest pain or dyspnea , new or unusual visual symptoms and low sugar/hypoglycemic reactions. Follows a diabetic diet most of the time. She is diet controlled. She reports checking her glucose on a once a day schedule with sugars in the fasting 90s-110s range. Patient's last HgA1C was Hemoglobin A1C (%) Date Value 07/13/2018 5.0 01/05/2018 4.9 ) Last Ophthalmology exam was within the past 12 months Ms. Garnett reports history of hyperlipidemia. Current therapy includes diet and exercise. Denies side effects of muscle weakness or achiness. Her most recent lipid panels are reviewed. Cholesterol, Total (mg/dL) Date Value 07/13/2018 146 HDL Cholesterol (mg/dL) Date Value 07/13/2018 58 LDL Cholesterol (mg/dL) Date Value 07/13/2018 75 Triglyceride (mg/dL) Date Value 07/13/2018 64 Last 3 Encounter BP Readings: Date: BP: 07/17/2018 130/70 01/13/2018 136/74 07/15/2017 120/70 She watches her diet for sodium, low fat and low cholesterol most of the time. She does not check BP's generally. Radha gets sporadic irregular exercise. PAST MEDICAL HISTORY Diagnosis Date - Breast cancer (HCC) 2008 lt breast - Diabetes mellitus type 2, uncontrolled (HCC) 07/2016 - Esophageal reflux PAST SURGICAL HISTORY Procedure Laterality Date - BX BREAST PERC VACUUM/ROTN Left Breast - Ductal Carcinoma - BX BREAST PERC VACUUM/ROTN 08/13/10 Left - BX/REMV,LYMPH NODE,DEEP AXILL Left Axillary Dissection - COLONOSCOP W/ OR W/O BRSH SPEC 10/04/2009 Normal Colonscopy - MASTECTOMY, PARTIAL 12/16/2008 L Needle Lump Sentinal Node - PAST SURGICAL HISTORY OF Excision moles abdomen x 3 age 23 - TOTAL ABDOM HYSTERECTOMY 1994 Hysterectomy, ZAK-BSO, Fibroids - TUNNEL VAD W SUB Q PORT >=5 Right Subclavian Social History Marital status: Spouse name: Antonio Years of education: 12 Number of children: 1 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 Main Topics Smoking status: Never Smoker Smokeless tobacco: Never Used Alcohol use: No Drug use: No Sexual activity: Yes control/protection: Other Comment: Hysterectomy FAMILY HISTORY Problem Relation Age of Onset - Diabetes Mother - Hypertension Mother - Diabetes Father - Hypertension Maternal Grandmother - Diabetes Maternal Grandmother - Heart Maternal Grandfather - None Sister Twin - None Sister - Cancer Paternal Aunt Melanoma Allergies: ALLERGIES Allergen Reactions - Iodine Rash topical iodine Current Meds: blood sugar diagnostic (BLOOD GLUCOSE TEST) test strip Test blood sugar(s) 1 times daily. Dx: Type 2 DM -Controlled, Insulin: No Blood-Glucose Meter misc Dispense 1 kit Lancets lancets Test blood sugar(s) 2 times daily. Dx: Type 2 DM - Uncontrolled E11.65 Insulin: No calcium carbonate/vitamin d3(CALCIUM 500 WITH D 500 MG (1,250 MG)-400 UNIT TAB) Take one(1) tablet two(2) times daily. aspirin, enteric coated (ASPIRIN, ENTERIC COATED) 81 mg EC tablet Take 1 tablet by mouth once daily. Review of Systems: The remainder of the review of systems is negative. PE: 07/17/18 0935 BP: 130/70 Pulse: 64 Resp: 16 Temp: 36.7 ?C (98.1 ?F) TempSrc: Left Tympanic Weight: 64 kg (141 lb) Gen: AANDO, NAD, non-toxic appearing, Pleasant, cooperative HEENT: NT/AC, PERRLA, wearing glasses, EOMs intact b/l, nares clear and patent b/l, pharynx without erythema, exudate or lesions. Uvula midline. MMM Neck: supple, No cervical LAD, no thyromegaly, no carotid bruits CV: RRR, normal S1 and S2, 2/6 RUSB murmurs, no gallops, no rubs, Pulses 2+ and symmetric in UE and LE b/l Lungs: normal respiratory effort, CTA b/l, no wheezing or rhonchi or rales Abd: soft, NT, ND, +BS, no hepatosplenomegaly MS: FROM all 4 extremities Neuro: CN II-XII intact b/l, strength 5/5 b/l UE and LE, DTRs 2/4 UE and LE, sensation intact. Skin: warm, dry, intact, No rashes or lesions on exposed skin. Foot exam: Monofilament normal on right and left feet. ASSESSMENT/PLAN: 1. Controlled type 2 diabetes mellitus without complication, without long-term current use of insulin (HCC) - ICD9: 250.00, ICD10: E11.9 (primary diagnosis) Controlled. - Blood glucose monitoring on a once a day schedule - Encouraged regular aerobic exercise and weight loss - Daily Asprin therapy recommended - Follow up in 6 month, sooner should any other issues arise. - Discussed diabetic education issues of alf diabetic complications, diet and importance of exercise with patient. - BP goal of <130/80 - LDL goal of <100 - ASPIRIN 81 MG TABLET,DELAYED RELEASE - ECHO - ECG COMPLETE W INTERPRETATION 2. Need for vaccination - ICD9: V05.9, ICD10: Z23 - ADMIN OF INFLUENZA VACCINE - INFLUENZA SEASONAL HIGH DOSE AGE 65+ 3. Aortic stenosis, mild - ICD9: 424.1, ICD10: I35.0 - EKG today in office without acute changes, recheck echo - ECHO - ECG COMPLETE W INTERPRETATION Marco Simons DO To ER if develops chest pain, shortness of breath, or severe worsening of symptoms. Discussed risks, benefits, alternatives, and potential side effects of medications. Patient expressed understanding and agreed with the plan. Marco Simosn DO [address] [place] [address] Referring Provider: MARCO SIMONS [[id number]] Allergies As of Date: 07/17/2018 Noted Allergy Reaction IODINE 03/27/2009 2 - Rash Comments: topical iodine Date Reviewed: 07/17/2018 Reviewed by: Liliana Juarez LPN - Fully Assessed Reason for Visit: Follow Up [171] Cmt: 6 months Primary Visit Diagnosis:Controlled type 2 diabetes mellitus without complication, without long-term current use of insulin (HCC) [E11.9] Other Visit Diagnoses:Need for vaccination [Z23] Aortic stenosis, mild [I35.0] Order(s):ADMIN OF INFLUENZA VACCINE [[id number]] Order #: [id number]: 1 INFLUENZA SEASONAL HIGH DOSE AGE 65+ [[id number]] Order #: [id number] aspirin, enteric coated (ASPIRIN, ENTERIC COATED) 81 mg EC tabletTake 1 tablet by mouth once daily.Disp: Rfl: ECHO [[id number]] Order #: [id number]: 1 FUTURE ECG COMPLETE W INTERPRETATION [ECG01] Order #: [id number] FUTURE Prescriptions as of 07/17/2018 Sig: BLOOD SUGAR DIAGNOSTIC STRIPS Test blood sugar(s) 1 times d* BLOOD-GLUCOSE METER Dispense 1 kit LANCETS Test blood sugar(s) 2 times d* * CALCIUM 500 WITH D 500 MG (1,* Take one(1) tablet two(2) derick* ASPIRIN 81 MG TABLET,DELAYED * Take 1 tablet by mouth once d* Problem List As Of Date 07/17/2018 Noted Resolved FAMILY HX DIABETES MELLITUS [Z83.3] INVALID FOR* SCREENING MAL NEOP-COLON [Z12.11] INVALID FOR* UNSP ABNORMAL MAMMOGRAM [R92.8] INVALID FOR* MALIG NEOPLASM BREAST UP-OUTER [C50.419] INVALID FOR* More... Pain in joint, ankle and foot [M25.579] INVALID FOR*01/11/2017 Impaired fasting glucose [R73.01] INVALID FOR*07/12/2016 Benign Neoplasm of Skin of Trunk, except Scrotu*INVALID FOR* Personal history of breast cancer [Z85.3] INVALID FOR* Controlled type 2 diabetes mellitus without com*INVALID FOR* Low HDL (under 40) [E78.6] INVALID FOR* Elevated LFTs [R94.5] INVALID FOR* Dyslipidemia [E78.5] INVALID FOR* Vitamin D deficiency [E55.9] INVALID FOR* Osteopenia [M85.80] INVALID FOR* Visit Notes: >> Liliana Juarez LPN Mon Jul 17, 2018 9:38 AM Status: Signed Influenza Vaccine Documentation: ? Patient is identified by name and date of : Yes ? Patient is older than 6 months of age: Yes ? Patient denies a severe allergy to any vaccine component or to a previous dose of influenza vaccine: Yes FOR EGG ALLERGY CONCERNS, REFER TO PROVIDER. ? Denies allergy to gelatin, formaldehyde, thimerosol :Yes ? Patient is afebrile and not moderately or severely ill: Yes ? Does the patient have a history of Guillain ?Muscadine Syndrome (a severe paralytic illness): No ? Denies bone marrow transplant prior 6 months or solid organ transplant prior 3 months: Yes ? Denies a history of fainting after a prior injection or medical procedure? Yes If patient has fainted in the past, the CDC recommends sitting or lying down for 15 minutes after the vaccination. ? VIS sheet provided: Yes ? See Immunization Form in [facility] for details of immunizations administered today. If patient reports dizziness, vision changes or ringing in the ears post vaccination ? please have patient sit or lie down for 15 minutes. Prescriptions ordered this encounter Disp Refills Start End ASPIRIN 81 MG TABLET,DELAYED RELEASE 07/17/2018 Class: Med Update Route: ORAL Sig: Take 1 tablet by mouth once daily. Encounter Status:Closed by MARCO SIMONS DO on 07/18/18 HEMOGLOBIN A1C Collected: 07/13/2018 Status: F Source: BOUSE 8:41 AM [facility] REPOSITORY TYPE CODE TESTS RESULT OUT OF REFERENCE UNITS RANGE LAB HGBA1C 4.3-5.6 % Hemoglobin A1c 5.0 LAB HBA0 mg/dL Est. Average Glucose 97 Result Comment: eAG: (Estimated average glucose) is a calculated value from HgbA1c and is telephone services sales representative of the average blood glucose level in the last 2-3 month period. Performed By: #### HBA1C, LIPB #### [facility] [address] [address] LIPID PANEL, BASIC Collected: 07/13/2018 Status: F Source: BOUSE 8:41 AM [facility] REPOSITORY TYPE CODE TESTS RESULT OUT OF REFERENCE UNITS RANGE LAB CHOL <200 mg/dL Cholesterol 146 Result Comment: <200 mg/dL, Desirable 200-239 mg/dL, Borderline high >239 mg/dL, High LAB TRIGLY <150 mg/dL Triglyceride 64 Result Comment: <150 mg/dL, Normal 150-199 mg/dL, Borderline high 200-499 mg/dL, High >499 mg/dL, Very high LAB HDL >39 mg/dL HDL-Cholesterol 58 Result Comment: 40-59 mg/dL, Acceptable >59 mg/dL, High: Negative risk factor for coronary heart disease <40 mg/dL, Low: Positive risk factor for coronary heart disease LAB LDL <100 mg/dL LDL-Cholesterol 75 Result Comment: <100 mg/dL, Optimal 100-129 mg/dL, Near optimal/above optimal 130-159 mg/dL, Borderline high 160-189 mg/dL, High >189 mg/dL, Very high Secondary prevention optimal LDL Cholesterol levels are recommended to be < 70 mg/dL LAB NONHDL <130 mg/dL Non HDL Cholesterol 88 Result Comment: <130 mg/dL, Optimal 130-159 mg/dL, Near optimal/above optimal 160-189 mg/dL, Borderline high 190-219 mg/dL, High >219 mg/dL, Very high Secondary prevention optimal non HDL Cholesterol levels are recommended to be < 100 mg/dL LAB FT hrs Fasting Time 12 LAB VLDL <30 mg/dL VLDL Cholesterol 13 LAB TCHDL <5.10 TC:HDL Ratio 2.52 LAB LDLHDL <2.54 LDL:HDL Ratio 1.29 Result Comment: Reference: 1. National Cholesterol Education Program ATP III Guideline At-A-Glance Quick Desk Reference: National Heart, Lung, and Blood [place]. National Institutes of Health. 2001: NIH Publication No. 01-3305. 2. An International Atherosclerosis Society position paper: global recommendations for the management of dyslipidemia: executive summary, Atherosclerosis. 2014: 232(2):410-413. Performed By: #### HBA1C, LIPB #### [facility] [address] [place], [place] [address] CNPTOUTREACH Observed: 07/04/2018 Status: COMPLETED Source: BOUSE 12:00 AM [facility] REPOSITORY Patient Outreach (FAMPST) RADHA GARNETT ([id number]) 1945 F Date Time Provider Department 07/04/18 MARCO SIMONS FAMPST During your visit today, we recorded the following information about you: Allergies As of Date: 07/04/2018 Noted Allergy Reaction IODINE 03/27/2009 2 - Rash Comments: topical iodine Date Reviewed: 01/13/2018 Reviewed by: Liliana Juarez LPN - Fully Assessed Visit Diagnosis:Medication management [Z79.899] Order(s):HGB A1C [[id number]] Order #: [id number] FUTURE LIPID PANEL BASIC [SQLIPB] Order #: [id number] FUTURE Prescriptions as of 07/04/2018 Sig: BLOOD SUGAR DIAGNOSTIC STRIPS Test blood sugar(s) 1 times d* BLOOD-GLUCOSE METER Dispense 1 kit LANCETS Test blood sugar(s) 2 times d* * CALCIUM 500 WITH D 500 MG (1,* Take one(1) tablet two(2) derick* Problem List As Of Date 07/04/2018 Noted Resolved FAMILY HX DIABETES MELLITUS [Z83.3] INVALID FOR* SCREENING MAL NEOP-COLON [Z12.11] INVALID FOR* UNSP ABNORMAL MAMMOGRAM [R92.8] INVALID FOR* MALIG NEOPLASM BREAST UP-OUTER [C50.419] INVALID FOR* More... Pain in joint, ankle and foot [M25.579] INVALID FOR*01/11/2017 Impaired fasting glucose [R73.01] INVALID FOR*07/12/2016 Benign Neoplasm of Skin of Trunk, except Scrotu*INVALID FOR* Personal history of breast cancer [Z85.3] INVALID FOR* Controlled type 2 diabetes mellitus without com*INVALID FOR* Low HDL (under 40) [E78.6] INVALID FOR* Elevated LFTs [R94.5] INVALID FOR* Dyslipidemia [E78.5] INVALID FOR* Vitamin D deficiency [E55.9] INVALID FOR* Osteopenia [M85.80] INVALID FOR* Encounter Status:Closed by TIM GARCIA on 08/11/18 CNCO Observed: 02/07/2018 Status: COMPLETED Source: BOUSE 3:09 PM [facility] REPOSITORY [facility] ID: [id number] Author: Mammography Coordinator Service: (none) Author Type: Physician Type: Letter Filed: 02/08/2018 11:32 PM Note Text: February 07, 2018 PID: [id number] Radha Garnett [address] [place] [address] Dear Ms. Garnett, We are pleased to inform you that the results of your recent breast imaging exam on 02/07/2018 are normal. Early detection of cancer is very important. We also understand recommendations regarding breast cancer screening are controversial. Please discuss with your primary care provider which strategy is best for you and whether a mammogram is right for you. Your imaging studies and report will be kept on file at [facility] as part of your permanent medical record and are available for your continuing care. Thank you for allowing us to help in meeting your health care needs. Sincerely, Dr. Anna Interpreting Radiologist [facility] (Normal over 40) [facility] SCREENING Observed: 02/07/2018 Status: F Source: BOUSE 8:59 AM [facility] REPOSITORY * * *Final Report* * * DATE OF EXAM: Feb 07 2018 8:59AM WOW [id number] - [facility] SCREENING / PROCEDURE REASON: Encounter for screening mammogram for malignant neoplasm of breast * * * * Physician Interpretation * * * * RESULT: #[id number] - [facility] SCREENING BILATERAL DIGITAL SCREENING MAMMOGRAM WITH CAD: 02/07/2018 HISTORY: Encounter For Screening Mammogram For Malignant Neoplasm Of Breast\ Screening Mammogram - patient reports NO breast symptoms /priors available for comparison. RESULT: TECHNIQUE: The study was acquired using full field digital technology and interpreted from soft copy. Current study was also evaluated with a Computer Aided Detection (CAD). Comparison is made to exams dated: 02/04/2017 mammogram - [facility], 02/02/2016 mammogram, and 01/27/2015 mammogram - [facility]. There are scattered fibroglandular elements in both breasts. There are stable post operative findings in both breasts. There also is a biopsy clip in the left breast. No significant masses, calcifications, or other findings are seen in either breast. IMPRESSION: BENIGN FINDING There is no mammographic evidence of malignancy.A 1 year screening mammogram is recommended. Melissa franz/claire:02/07/2018 15:09:40 Rigger Third: Arti FELDER)(Ayden), [facility] letter sent: Normal over 40 Mammogram BI-RADS: 2 Benign finding Cruise Director: Claire Transcribe Date/Time: Feb 07 2018 9:00A Dictated by: MELISSA ANNA MD This examination was interpreted and the report reviewed and electronically signed by: MELISSA ANNA MD on Feb 07 2018 3:09PM EST [id number] Observed: 01/13/2018 Status: COMPLETED Source: BOUSE 10:10 AM [facility] REPOSITORY [facility] ID: [id number] Author: Marco Simons Service: (none) Author Type: Physician Type: Progress Notes Filed: 01/13/2018 10:13 AM Note Text: Patient presents with: Follow Up: 6 months HPI: Radha Garnett is a 72 year old female who presents to the office today for review of health conditions. Concerns today: Overall is feeling great, blood glucose fasting in 90s every day checked. Ms. Garnett has past history of diabetes. Since our last visit she denies excessive thirst or increased frequency of urination, chest pain or dyspnea , new or unusual visual symptoms and low sugar/hypoglycemic reactions. Follows a diabetic diet most of the time. Diet controlled, She reports checking her glucose on a every other day schedule with sugars in the fasting 90s range. Patient's last HgA1C was Hemoglobin A1C (%) Date Value 01/05/2018 4.9 07/08/2017 5.2 ) Last Ophthalmology exam was within the past 12 months Ms. Garnett reports history of hyperlipidemia. Current therapy includes diet and exercise. Denies side effects of muscle weakness or achiness. Her most recent lipid panels are reviewed. Cholesterol, Total (mg/dL) Date Value 07/08/2017 121 HDL Cholesterol (mg/dL) Date Value 07/08/2017 55 LDL Cholesterol (mg/dL) Date Value 07/08/2017 53 Triglyceride (mg/dL) Date Value 07/08/2017 64 Ms. Garnett indicates a history of hypertension and states that she is feeling well and denies any symptoms referable to elevated blood pressure. Specifically denies headache, chest pain, palpitations, dyspnea and peripheral edema. Patient denies any side effects of her medication(s) and is compliant with their regimen. Last 3 Encounter BP Readings: Date: BP: 01/13/2018 136/74 07/15/2017 120/70 03/30/2017 138/80 She watches her diet for sodium, low fat and low cholesterol most of the time. She does not check BP's generally. Radha gets sporadic irregular exercise. PAST MEDICAL HISTORY Diagnosis Date - Breast cancer (HCC) 2008 lt breast - Diabetes mellitus type 2, uncontrolled (HCC) 07/2016 - Esophageal reflux PAST SURGICAL HISTORY Procedure Laterality Date - BX BREAST PERC VACUUM/ROTN Left Breast - Ductal Carcinoma - BX BREAST PERC VACUUM/ROTN 08/13/10 Left - BX/REMV,LYMPH NODE,DEEP AXILL Left Axillary Dissection - COLONOSCOP W/ OR W/O BRSH SPEC 10/04/2009 Normal Colonscopy - MASTECTOMY, PARTIAL 12/16/2008 L Needle Lump Sentinal Node - PAST SURGICAL HISTORY OF Excision moles abdomen x 3 age 23 - TOTAL ABDOM HYSTERECTOMY 1994 Hysterectomy, ZAK-BSO, Fibroids - TUNNEL VAD W SUB Q PORT >=5 Right Subclavian Social History Marital status: Spouse name: Antonio Years of education: 12 Number of children: 1 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 Main Topics Smoking status: Never Smoker Smokeless status: Never Used Alcohol use: No Drug use: No Sexual activity: Yes control/protection: Other Comment: Hysterectomy FAMILY HISTORY Problem Relation Age of Onset - Diabetes Mother - Hypertension Mother - Diabetes Father - Hypertension Maternal Grandmother - Diabetes Maternal Grandmother - Heart Maternal Grandfather - None Sister Twin - None Sister - Cancer Paternal Aunt Melanoma Allergies: ALLERGIES Allergen Reactions - Iodine Rash topical iodine Current Meds: blood sugar diagnostic (BLOOD GLUCOSE TEST) test strip Test blood sugar(s) 1 times daily. Dx: Type 2 DM -Controlled, Insulin: No Lancets lancets Test blood sugar(s) 2 times daily. Dx: Type 2 DM - Uncontrolled E11.65 Insulin: No calcium carbonate/vitamin d3(CALCIUM 500 WITH D 500 MG (1,250 MG)-400 UNIT TAB) Take one(1) tablet two(2) times daily. Blood-Glucose Meter [facility] Dispense 1 kit Review of Systems: The remainder of the review of systems is negative. PE: 01/13/18 0932 BP: 136/74 Pulse: 72 Resp: 16 Temp: 36.7 ?C (98 ?F) TempSrc: Left Tympanic Weight: 59.9 kg (132 lb) Gen: AANDO, NAD, non-toxic appearing, Pleasant, cooperative HEENT: NT/AC, PERRLA, EOMs intact b/l, nares clear and patent b/l, pharynx without erythema, exudate or lesions. Uvula midline, MMM Neck: supple, No cervical LAD, no thyromegaly, no carotid bruits CV: RRR, normal S1S2, no murmurs, no gallops, no rubs, Pulses 2+ and symmetric in UE and LE b/l Lungs: normal respiratory effort, CTA b/l, no wheezing or rhonchi or rales Abd: soft, NT, ND, +BS, no hepatosplenomegaly MS: FROM all 4 extremities Neuro: CN II-XII intact b/l grossly intact Skin: warm, dry, intact, No rashes or lesions on exposed skin. No edema ASSESSMENT/PLAN: 1. Controlled type 2 diabetes mellitus without complication, without long-term current use of insulin (HCC) - ICD9: 250.00, ICD10: E11.9 (primary diagnosis) Controlled. - Blood glucose monitoring on a weekly schedule - BLOOD SUGAR DIAGNOSTIC STRIPS 2. Visit for screening mammogram - ICD9: V76.12, ICD10: Z12.31 - [facility] SCREENING 3. Osteopenia, unspecified location - ICD9: 733.90, ICD10: M85.80 - Reviewed the need for Calcium and Vitamin D supplements and weight bearing exercise as tolerated 4. Low HDL (under 40) - ICD9: 272.5, ICD10: E78.6 - good control - Encouraged following a low fat, low cholesterol diet. - Discussed the benefits of regular aerobic exercise and weight loss. - Check fasting lipid panel and ALT in 6 months. 5. Vitamin D deficiency - ICD9: 268.9, ICD10: E55.9 - continue supplement 6. Dyslipidemia - ICD9: 272.4, ICD10: E78.5 - good control - Encouraged following a low fat, low cholesterol diet. - Discussed the benefits of regular aerobic exercise and weight loss. - Check fasting lipid panel and ALT in 6 months. Marco Simons, DO To ER if develops chest pain, shortness of breath, or severe worsening of symptoms. Discussed risks, benefits, alternatives, and potential side effects of medications. Patient expressed understanding and agreed with the plan. Marco Simons DO [address] [place] [address] YAN Observed: 01/13/2018 Status: COMPLETED Source: BOUSE 9:40 AM [facility] REPOSITORY Office Visit (FAMPWS) RADHA GARNETT ([id number]) 1945 F Date Time Provider Department 01/13/18 9:40 AM [facility] During your visit today, we recorded the following information about you: Temperature Pulse Respiration Blood pressure 98 degrees 72/minute 16/minute 136/74 Weight 59.9 kg Marco Chloe DO Mike 01/13/2018 10:13 AM Signed Patient presents with: Follow Up: 6 months HPI: Radha Garnett is a 72 year old female who presents to the office today for review of health conditions. Concerns today: Overall is feeling great, blood glucose fasting in 90s every day checked. Ms. Garnett has past history of diabetes. Since our last visit she denies excessive thirst or increased frequency of urination, chest pain or dyspnea , new or unusual visual symptoms and low sugar/hypoglycemic reactions. Follows a diabetic diet most of the time. Diet controlled, She reports checking her glucose on a every other day schedule with sugars in the fasting 90s range. Patient's last HgA1C was Hemoglobin A1C (%) Date Value 01/05/2018 4.9 07/08/2017 5.2 ) Last Ophthalmology exam was within the past 12 months Ms. Garnett reports history of hyperlipidemia. Current therapy includes diet and exercise. Denies side effects of muscle weakness or achiness. Her most recent lipid panels are reviewed. Cholesterol, Total (mg/dL) Date Value 07/08/2017 121 HDL Cholesterol (mg/dL) Date Value 07/08/2017 55 LDL Cholesterol (mg/dL) Date Value 07/08/2017 53 Triglyceride (mg/dL) Date Value 07/08/2017 64 Ms. Garnett indicates a history of hypertension and states that she is feeling well and denies any symptoms referable to elevated blood pressure. Specifically denies headache, chest pain, palpitations, dyspnea and peripheral edema. Patient denies any side effects of her medication(s) and is compliant with their regimen. Last 3 Encounter BP Readings: Date: BP: 01/13/2018 136/74 07/15/2017 120/70 03/30/2017 138/80 She watches her diet for sodium, low fat and low cholesterol most of the time. She does not check BP's generally. Radha gets sporadic irregular exercise. PAST MEDICAL HISTORY Diagnosis Date - Breast cancer (HCC) 2008 lt breast - Diabetes mellitus type 2, uncontrolled (HCC) 07/2016 - Esophageal reflux PAST SURGICAL HISTORY Procedure Laterality Date - BX BREAST PERC VACUUM/ROTN Left Breast - Ductal Carcinoma - BX BREAST PERC VACUUM/ROTN 08/13/10 Left - BX/REMV,LYMPH NODE,DEEP AXILL Left Axillary Dissection - COLONOSCOP W/ OR W/O BRSH SPEC 10/04/2009 Normal Colonscopy - MASTECTOMY, PARTIAL 12/16/2008 L Needle Lump Sentinal Node - PAST SURGICAL HISTORY OF Excision moles abdomen x 3 age 23 - TOTAL ABDOM HYSTERECTOMY 1994 Hysterectomy, ZAK-BSO, Fibroids - TUNNEL VAD W SUB Q PORT ANDgt;=5 Right Subclavian Social History Marital status: Spouse name: Antonio Years of education: 12 Number of children: 1 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 Main Topics Smoking status: Never Smoker Smokeless status: Never Used Alcohol use: No Drug use: No Sexual activity: Yes control/protection: Other Comment: Hysterectomy FAMILY HISTORY Problem Relation Age of Onset - Diabetes Mother - Hypertension Mother - Diabetes Father - Hypertension Maternal Grandmother - Diabetes Maternal Grandmother - Heart Maternal Grandfather - None Sister Twin - None Sister - Cancer Paternal Aunt Melanoma Allergies: ALLERGIES Allergen Reactions - Iodine Rash topical iodine Current Meds: blood sugar diagnostic (BLOOD GLUCOSE TEST) test strip Test blood sugar(s) 1 times daily. Dx: Type 2 DM -Controlled, Insulin: No Lancets lancets Test blood sugar(s) 2 times daily. Dx: Type 2 DM - Uncontrolled E11.65 Insulin: No calcium carbonate/vitamin d3(CALCIUM 500 WITH D 500 MG (1,250 MG)-400 UNIT TAB) Take one(1) tablet two(2) times daily. Blood-Glucose Meter misc Dispense 1 kit Review of Systems: The remainder of the review of systems is negative. PE: 01/13/18 0932 BP: 136/74 Pulse: 72 Resp: 16 Temp: 36.7 ?C (98 ?F) TempSrc: Left Tympanic Weight: 59.9 kg (132 lb) Gen: AANDamp;O, NAD, non-toxic appearing, Pleasant, cooperative HEENT: NT/AC, PERRLA, EOMs intact b/l, nares clear and patent b/l, pharynx without erythema, exudate or lesions. Uvula midline, MMM Neck: supple, No cervical LAD, no thyromegaly, no carotid bruits CV: RRR, normal S1S2, no murmurs, no gallops, no rubs, Pulses 2+ and symmetric in UE and LE b/l Lungs: normal respiratory effort, CTA b/l, no wheezing or rhonchi or rales Abd: soft, NT, ND, +BS, no hepatosplenomegaly MS: FROM all 4 extremities Neuro: CN II-XII intact b/l grossly intact Skin: warm, dry, intact, No rashes or lesions on exposed skin. No edema ASSESSMENT/PLAN: 1. Controlled type 2 diabetes mellitus without complication, without long-term current use of insulin (HCC) - ICD9: 250.00, ICD10: E11.9 (primary diagnosis) Controlled. - Blood glucose monitoring on a weekly schedule - BLOOD SUGAR DIAGNOSTIC STRIPS 2. Visit for screening mammogram - ICD9: V76.12, ICD10: Z12.31 - [facility] SCREENING 3. Osteopenia, unspecified location - ICD9: 733.90, ICD10: M85.80 - Reviewed the need for Calcium and Vitamin D supplements and weight bearing exercise as tolerated 4. Low HDL (under 40) - ICD9: 272.5, ICD10: E78.6 - good control - Encouraged following a low fat, low cholesterol diet. - Discussed the benefits of regular aerobic exercise and weight loss. - Check fasting lipid panel and ALT in 6 months. 5. Vitamin D deficiency - ICD9: 268.9, ICD10: E55.9 - continue supplement 6. Dyslipidemia - ICD9: 272.4, ICD10: E78.5 - good control - Encouraged following a low fat, low cholesterol diet. - Discussed the benefits of regular aerobic exercise and weight loss. - Check fasting lipid panel and ALT in 6 months. Marco Simons DO To ER if develops chest pain, shortness of breath, or severe worsening of symptoms. Discussed risks, benefits, alternatives, and potential side effects of medications. Patient expressed understanding and agreed with the plan. Marco Simons DO [address] [place] [address] Referring Provider: MARCO SIMONS [[id number]] Allergies As of Date: 01/13/2018 Noted Allergy Reaction IODINE 03/27/2009 2 - Rash Comments: topical iodine Date Reviewed: 01/13/2018 Reviewed by: Liliana Juarez LPN - Fully Assessed Reason for Visit: Follow Up [171] Cmt: 6 months Primary Visit Diagnosis:Controlled type 2 diabetes mellitus without complication, without long-term current use of insulin (HCC) [E11.9] Other Visit Diagnoses:Visit for screening mammogram [Z12.31] Osteopenia, unspecified location [M85.80] Low HDL (under 40) [E78.6] Vitamin D deficiency [E55.9] Dyslipidemia [E78.5] Order(s):[facility] SCREENING [[id number]] Order #: [id number] FUTURE blood sugar diagnostic (BLOOD GLUCOSE TEST) test stripTest blood sugar(s) 1 times daily. Dx: Type 2 DM -Controlled, Insulin: NoDisp: 50 StripRfl: 11 Prescriptions as of 01/13/2018 Sig: BLOOD SUGAR DIAGNOSTIC STRIPS Test blood sugar(s) 1 times d* LANCETS Test blood sugar(s) 2 times d* * CALCIUM 500 WITH D 500 MG (1,* Take one(1) tablet two(2) derick* BLOOD-GLUCOSE METER Dispense 1 kit Problem List As Of Date 01/13/2018 Noted Resolved FAMILY HX DIABETES MELLITUS [Z83.3] INVALID FOR* SCREENING MAL NEOP-COLON [Z12.11] INVALID FOR* UNSP ABNORMAL MAMMOGRAM [R92.8] INVALID FOR* MALIG NEOPLASM BREAST UP-OUTER [C50.419] INVALID FOR* More... Pain in joint, ankle and foot [M25.579] INVALID FOR*01/11/2017 Impaired fasting glucose [R73.01] INVALID FOR*07/12/2016 Benign Neoplasm of Skin of Trunk, except Scrotu*INVALID FOR* Personal history of breast cancer [Z85.3] INVALID FOR* Controlled type 2 diabetes mellitus without com*INVALID FOR* Low HDL (under 40) [E78.6] INVALID FOR* Elevated LFTs [R79.89] INVALID FOR* Dyslipidemia [E78.5] INVALID FOR* Vitamin D deficiency [E55.9] INVALID FOR* Osteopenia [M85.80] INVALID FOR* Prescriptions ordered this encounter Disp Refills Start End BLOOD SUGAR DIAGNOSTIC STRIPS 50 S* 11 01/13/2018 Sig: Test blood sugar(s) 1 times daily. Dx: Type 2 DM - Controlled, Insulin: No Medications Discontinued During This Encounter blood sugar diagnostic (BLOOD GLUCOS* 50 S* 11 07/07/2016 01/13/2018 Sig: Test blood sugar(s) 2 times daily. Dx: Type 2 DM - Uncontrolled E11.65 Insulin: No Disc: Reason for discontinue is not on file. Encounter Status:Closed by MARCO SIMONS DO on 01/13/18 COMP METABOLIC PANEL Collected: 01/05/2018 Status: F Source: BOUSE 7:50 AM [facility] RE[facility] TYPE CODE TESTS RESULT OUT OF REFERENCE UNITS RANGE LAB TP 6.3-8.0 g/dL Protein, Total 7.4 LAB ALB 3.9-4.9 g/dL Albumin 4.5 LAB CA 8.5-10.2 mg/dL Calcium, Total 9.6 LAB TBIL 0.2-1.3 mg/dL Bilirubin, Total 0.4 LAB ALKP 32-117 U/L Alkaline Phosphatase 63 LAB AST 13-35 U/L AST 18 LAB GLU 74-99 mg/dL Glucose High 101 Result Comment: The [place] Diabetes Association (ADA) provides guidance for cutoff values for fasting glucose and random glucose. The ADA defines fasting as no caloric intake for at least 8 hours. Fas ting plasma glucose results between 100 to 125 mg/dL indicate increased risk for diabetes (prediabetes). Fasting plasma glucose results greater than or equal to 126 mg/dL meet the criteria for diagnosis of diabetes. In the absence of unequivocal hyperglycemia, results should be confirmed by repeat testing. In a patient with classic symptoms of hyperglycemia or hyperglycemic crisis, random plasma glucose results greater than or equal to 200 mg/dL meet the criteria for diagnosis of diabetes. Reference: Standards of Medical Care in Diabetes 2016, [place] Diabetes Association. Diabetes Care. 2016.39(Suppl 1). LAB BUN 7-21 mg/dL BUN High 29 LAB CRET 0.58-0.96 mg/dL Creatinine 0.88 LAB NA 136-144 mmol/L Sodium 142 LAB K 3.7-5.1 mmol/L Potassium 4.0 LAB CL 97-105 mmol/L Chloride 104 LAB CO2 22-30 mmol/L CO2 27 LAB AGAP 9-18 mmol/L Anion Gap 11 LAB ALT 7-38 U/L ALT 18 LAB GFRAA eGFR- Amer. >60 LAB GFRNAA . eGFR-All Other Races >60 Result Comment: eGFR (Estimated GFR) Units of measure: mL/min/1.73 meters squared eGFR is derived from the reexpressed MDRD Study equation using the following parameters: serum creatinine, age, gender and race. The creatinine assay has been calibrated to be traceable to IDMS. An eGFR <60 mL/min/1.73m2 for >3 months is consistent with chronic kidney disease. Refer to KDOQI guidelines for clinical interpretation. In patients with unstable renal function, e.g. those with acute kidney injury, the eGFR may not accurately reflect actual GFR. Performed By: #### CMP, CBC, HBA1C #### [facility] [address] [place], [place] [address] CBC Collected: 01/05/2018 Status: F Source: BOUSE 7:50 AM [facility] REPOSITORY TYPE CODE TESTS RESULT OUT OF REFERENCE UNITS RANGE LAB WBC 3.70-11.00 k/uL WBC 6.45 LAB RBC 3.90-5.20 m/uL RBC 4.96 LAB HGB 11.5-15.5 g/dL Hemoglobin 14.8 LAB HCT 36.0-46.0 % High Hematocrit 47.9 LAB MCV 80.0-100.0 fL MCV 96.6 LAB MCH 26.0-34.0 pG MCH 29.8 LAB MCHC 30.5-36.0 g/dL MCHC 30.9 LAB RDWCV 11.5-15.0 % RDW-CV 13.1 LAB PLTCT 150-400 k/uL Platelet Count 263 LAB MPV 9.0-12.7 fL MPV 10.7 LAB ABSNUC <0.01 k/uL Absolute nRBC <0.01 Performed By: #### CMP, CBC, HBA1C #### [facility] [address] [place] [address] HEMOGLOBIN A1C Collected: 01/05/2018 Status: F Source: BOUSE 7:50 AM [facility] REPOSITORY TYPE CODE TESTS RESULT OUT OF REFERENCE UNITS RANGE LAB HGBA1C 4.3-5.6 % Hemoglobin A1c 4.9 LAB HBA0 mg/dL Est. Average Glucose 94 Result Comment: eAG: (Estimated average glucose) is a calculated value from HgbA1c and is telephone services sales representative of the average blood glucose level in the last 2-3 month period. Performed By: #### CMP, CBC, HBA1C #### [place] [address] ALBUMIN URINE RANDOM Collected: 01/05/2018 Status: F Source: BOUSE 7:43 AM [facility] REPOSITORY TYPE CODE TESTS RESULT OUT OF REFERENCE UNITS RANGE LAB UALBR 0.0-23.0 mg/L Albumin Urine <12.0 Random Performed By: #### UALBR #### [facility] [address] [place] [address] ALBUMIN/CREAT RATIO Collected: 01/05/2018 Status: F Source: BOUSE 7:43 AM [facility] REPOSITORY TYPE CODE TESTS RESULT OUT OF REFERENCE UNITS RANGE LAB UCRR 20-300 mg/dL 167.8 Creatinine,Ur ine,Ran LAB UALBR 0.0-23.0 mg/L <12.0 Albumin Urine Random LAB UALBCR 0-30 mg/g Not Albumin/Creat calculated Ratio Performed By: #### UACR #### [place] [id number] CNPTOUTREACH Observed: 12/27/2017 Status: COMPLETED Source: BOUSE 12:00 AM [facility] REPOSITORY Patient Outreach (INTMWH) RADHA GARNETT ([id number]) 1945 F Date Time Provider Department 12/27/17 MARCO SIMONS [facility] During your visit today, we recorded the following information about you: Allergies As of Date: 12/27/2017 Noted Allergy Reaction IODINE 03/27/2009 2 - Rash Comments: topical iodine Date Reviewed: 07/15/2017 Reviewed by: Liliana Juarez LPN - Fully Assessed Visit Diagnosis:Medication management [Z79.899] Order(s):ALBUMIN/CREAT RATIO RND UR [SQUACR] Order #: [id number] FUTURE Prescriptions as of 12/27/2017 Sig: BLOOD-GLUCOSE METER Dispense 1 kit LANCETS Test blood sugar(s) 2 times d* X BLOOD SUGAR DIAGNOSTIC STRIPS Test blood sugar(s) 2 times d* * CALCIUM 500 WITH D 500 MG (1,* Take one(1) tablet two(2) derick* Problem List As Of Date 12/27/2017 Noted Resolved FAMILY HX DIABETES MELLITUS [Z83.3] INVALID FOR* SCREENING MAL NEOP-COLON [Z12.11] INVALID FOR* UNSP ABNORMAL MAMMOGRAM [R92.8] INVALID FOR* MALIG NEOPLASM BREAST UP-OUTER [C50.419] INVALID FOR* More... Pain in joint, ankle and foot [M25.579] INVALID FOR*01/11/2017 Impaired fasting glucose [R73.01] INVALID FOR*07/12/2016 Benign Neoplasm of Skin of Trunk, except Scrotu*INVALID FOR* Personal history of breast cancer [Z85.3] INVALID FOR* Controlled type 2 diabetes mellitus without com*INVALID FOR* Low HDL (under 40) [E78.6] INVALID FOR* Elevated LFTs [R94.5] INVALID FOR* Encounter Status:Closed by TIM GARCIA on 08/11/18 ALLERGIES ALLERGIES DATE TYPE / CODE NAME / CODE REACTION SEVERITY SOURCE 10/01/2018 Drug No Known Unknown [facility] Allergy/4160 Allergies/F001 Hospital [address]76(SNOMED 392989(RXNORM) Repository CT) 03/27/2009 DRUG IODINE RASH [facility] INGREDI/[address] [place] [address]573(SNOMED Repository CT) ENCOUNTERS ENCOUNTERS ADMIT/DISCHARGE ACCOUNT ADMITTING ENCOUNTER LOCATION SOURCE NUMBER CLASS 10/01/2018/10/01/20 [id number] Emergency [address] ing:ED Repository 09/29/2018/09/29/20 [id number] Ambulatory [address] [place] Repository 09/20/2018/09/20/20 [id number] Ambulatory [address] [place] Repository 09/20/2018/09/20/20 [id number] Ambulatory [address] [place] Repository 09/20/2018/09/20/20 [id number] Ambulatory [address] [place] Repository 09/20/2018/09/27/20 [id number] Ambulatory [address] [place] Repository 09/08/2018/09/11/20 [id number] Ambulatory [address] [place] Repository 07/18/2018/07/18/20 [id number] Ambulatory [address] [place] Repository 07/17/2018/07/17/20 [id number] Ambulatory [address] [place] Repository 07/17/2018/07/18/20 [id number] Ambulatory [address] [place] Repository 07/13/2018/07/13/20 [id number] Ambulatory [address] [place] Repository 02/07/2018/02/08/20 [id number] Ambulatory [address] [place] Repository 01/13/2018/01/17/20 [id number] Ambulatory [address] [place] Repository 01/05/2018/01/06/20 [id number] Ambulatory [address] [place] Repository PAYERS PAYERS ENCOUNTER GUARANTOR PAYER SUBSCRIBER SOURCE 10/01/2018 RADHA Corona Primary RADHA Corona [place] [id number] [address] Insurance:MEDICARE BOWERSDOB: Community [address] BPolicy [id number], [place] Number: Repository [address]Tyi: [phone] [id number] [phone] () Date:2018-10-01 10/01/2018 Secondary RADHA L [place] Insurance:[employer] BOWERSDOB: Community Policy Number: [id number] [facility] [id number] Repository Date:[id number], [place] [address]LK: 10/01/2018 Tertiary NOT GIVENUNK [place] Insurance:SELF PAY [facility] Hospital Number: Effective Repository Date:2018-10-01
== END 2018-10-01 04:16 | disposition home or self-care (01) ==
PROVIDERS: Emergency Provider Emergency Medicine; Family Provider Student in an Organized Health Care Education/Training Program; PCP Student in an Organized Health Care Education/Training Program
DX: R79.89 Other specified abnormal findings of blood chemistry (principal); R35.0 Frequency of micturition; I10 Essential (primary) hypertension
CPT/HCPCS: 80048; 81001; 85025; 99282; A4216